=== PATIENT | female | born 1955 | race Caucasian/White ===

== ENCOUNTER 2019-01-29 15:01 | Outpatient (REF) | payer MEDICARE, OTHER, SELFPAY ==
--- NOTE | 2019-01-29 13:45 | PAPFT_PTH ---
PATIENT: Petty Traore LOC: [facility] U#:[id number] AGE/SX: 63/F ROOM: RE01/29/[address]: Emmie Colmenares : 1955 BED: DIS: 01/29/2019 SPEC #: [id number] RECD: 01/30/19 13:09 STATUS: NOLAN RELety #: [id number] COURTNEY: 01/29/19 13:[address]: Emmie Colmenares DEPT: [facility] Cytology RECD BY: Hemalatha Servin ENTERED: 01/30/19 13:10 SP TYPE: PAPFT OTHR DR: Edu Tee Tissues: 1 - CX/ENDOCX FOR PAP SMEARS Procedures: PAP THIN PREP/UVM Screening HPV DNA PROBE Comments: [id number]
== END 2019-01-29 15:21 ==
LOC: NCHCN 15:01
PROVIDERS: PCP Internal Medicine; Visit Provider Nurse Practitioner Family
DX: Z12.4 Encounter for screening for malignant neoplasm of cervix (principal); Z11.51 Encounter for screening for human papillomavirus (HPV)
CPT/HCPCS: 88142; 87624

== ENCOUNTER 2019-01-30 00:59 | Outpatient (CLI) | payer MEDICARE, OTHER, SELFPAY ==
--- NOTE | 2019-01-30 14:18 | DI.RAD_ITS ---
SYMPTOMS/DIAGNOSIS: SCREENING FOR OSTEOPOROSIS IN A POSTMENOPAUSAL WOMAN, Z78.0 DEXA SCAN: Routine examination. No priors for comparison. The lateral view of the spine shows no compression deformities. Evaluation of the left hip shows a total T score of -1.7 and a Z score of 0.5; this is consistent with osteopenia and an increased fracture risk. T Evaluation of the lumbar spine shows a total T score of -1.9 and a Z score of - 0.2; this is also consistent with osteopenia and an increased fracture risk. IMPRESSION: Osteopenia in the lumbar spine and left hip.
== END 2019-01-30 01:19 ==
PROVIDERS: PCP Internal Medicine; Visit Provider Nurse Practitioner Family
DX: M85.88 Other specified disorders of bone density and structure, other site (principal); Z78.0 Asymptomatic menopausal state
CPT/HCPCS: 77080

== ENCOUNTER 2020-03-20 03:21 | Outpatient (CLI) | payer MEDICARE, OTHER, SELFPAY ==
--- NOTE | 2020-03-20 10:30 | DI.MAMMO_ITS ---
EXAM: MAMMO SCREENING CLINICAL HISTORY: SCREENING Z12.31 TECHNIQUE: Mammograms were interpreted according to the usual protocol including computer analysis w [email or web address] CAD system, tomosynthesis and C-view imaging. COMPARISON: 2010 through 2018. FINDINGS: The breasts are composed of mainly fatty density , Breast Density category A. No suspicious masses or suspicious microcalcifications are seen. No skin thickening or abnormal axillary lymph nodes are seen. There has been no significant change from prior exams. IMPRESSION: BI-RADS Category 1, negative. Yearly screening mammography is recommended. Breast Density - Category A - Almost entirely fatty
== END 2020-03-20 03:41 ==
PROVIDERS: PCP Internal Medicine; Visit Provider Nurse Practitioner Family
DX: Z12.31 Encounter for screening mammogram for malignant neoplasm of breast (principal)
CPT/HCPCS: 77063; 77067

== ENCOUNTER 2021-05-07 09:50 | Outpatient (REF) | payer MEDICARE, OTHER, SELFPAY ==
[2021-05-07 14:21] LABS: ALT 26 U/L (14-59); AST 19 U/L (15-37); Anion Gap 7.7 mmol/L (3-11); BUN 14 mg/dL (7-18); CO2 29.3 mmol/L (21.0-32.0); CREATININE 0.6 mg/dL (0.55-1.02); Calcium 8.8 mg/dL (8.5-10.1); Calculated LDL 141 mg/dL (<100); Chloride 107 mmol/L (98-107); Cholesterol 217 mg/dL (<200); Glucose 84 mg/dL (74-106); HDL Cholesterol 68 mg/dL (40-60); Sodium 144 mmol/L (136-145); TSH (W/Ref FT4) 2.51 uIU/mL (0.36-3.74); Triglyceride 41 mg/dL (<150)
== END 2021-05-07 09:51 | disposition home or self-care (01) ==
LOC: NCHCN 09:50
PROVIDERS: PCP Internal Medicine; Visit Provider Nurse Practitioner Family
DX: E78.5 Hyperlipidemia, unspecified (principal); E03.9 Hypothyroidism, unspecified; I10 Essential (primary) hypertension
CPT/HCPCS: 80048; 80061; 84443; 84450; 84460

== ENCOUNTER 2022-01-05 15:12 | Outpatient (REF) | payer MEDICARE, OTHER, SELFPAY ==
[2022-01-05 21:26] LABS: HCT 37.1 % (36.0-46.0); HGB 11.5 g/dL (11.2-15.7); MCH 26.2 pg (27.0-33.0); MCV 84.5 fL (80-95); MPV 11.6 fL (8.0-11.0); Platelet Count 258 10^3/uL (130-400); RBC 4.39 10^6/uL (3.93-5.22); RDW 14.3 % (11.7-14.6); RDW-SD 44.2 fL; WBC 5.36 10^3/uL (4.4-10.8)
[2022-01-05 22:00] LABS: Anion Gap 10.8 mmol/L (3-11); BUN 16 mg/dL (7-18); CO2 29.2 mmol/L (21.0-32.0); CREATININE 0.6 mg/dL (0.55-1.02); Calculated LDL 73 mg/dL (<100); Chloride 103 mmol/L (98-107); Cholesterol 145 mg/dL (<200); Glucose 90 mg/dL (74-106); HDL Cholesterol 62 mg/dL (40-60); Potassium 4.5 mmol/L (3.5-5.1); Sodium 143 mmol/L (136-145); TSH (W/Ref FT4) 2.94 uIU/mL (0.36-3.74); Triglyceride 53 mg/dL (<150)
== END 2022-01-05 15:13 | disposition home or self-care (01) ==
LOC: NCHCN 15:12
PROVIDERS: PCP Internal Medicine; Visit Provider Nurse Practitioner Family
DX: I10 Essential (primary) hypertension (principal); R00.2 Palpitations; E78.5 Hyperlipidemia, unspecified; E03.9 Hypothyroidism, unspecified
CPT/HCPCS: 80048; 80061; 85027; 84443

== ENCOUNTER → 2022-01-11 00:56 | Outpatient (CLI) | payer MEDICARE, OTHER, SELFPAY ==
--- NOTE | 2022-01-11 08:00 | ETT_ITS ---
APPROVED REPORT Exam: Exercise Treadmill Patient Location: Out-Patient Room/Bed: Stress Nurse: Neelam Hernandez RN Ordering Provider:WENDY SUGGS, Contact Number: [phone] BMI: 28.70 Baseline Rhythm: Sinus Bradycardia Indications: Chest pain, sinus bradycardia, intermittent palpitations, jaw pain Medical History Medical History: Hypertension, hyperlipidemia, chest pain, jaw pain, intermittent palpitations Cardiac Medications: Aspirin, atovastatin Allergies: Codeine Cardiac Risk Factors: Hypertension, hyperlipidemia, family hx Previous Cardiac Procedures: None Pretest Chest Pain Characteristics: None Exercise History: Indeterminate Physical Disabilities: None Lung Sounds: Clear to auscultation Heart Sounds: Regular Stress Test Details Test: Exercise stress testing was performed using a Elfego protocol. Rest Stress HR Resting HR Supine: 55 bpm Max Heart Rate (APMHR): 152 bpm Resting HR Standin bpm Target HR (85% APMHR): 129 bpm Max HR Achieved: 148 bpm % of APMHR: 97 Recovery HR: 57 bpm HR response to stress: Normal HR response to stress BP Resting BP Supine: 170/78 mmHg Resting BP Standin/80 mmHg Max BP: 188/78 mmHg Recovery BP: 144/70 mmHg BP response to stress: Normal blood pressure response to stress. ECG Resting ECG: Sinus Bradycardia Ectopy: None Stress ECG: Sinus Tachycardia ST Change: No significant ST segment changes noted Arrhythmia: Occasional PVCs, burst of trigeminy Comment: Ectopy present for 30 seconds in stage 1 of exercise Recovery ECG: Sinus Bradycardia Recovery ST Change: No significant ST segment changes noted Recovery Arrhythmia: None Clinical Reason for Termination: Fatigue Stress Symptoms: General Fatigue, Dyspnea Exercise duration: 6 min17 sec Highest Stage Reached: Stage 3: 3.4 mph at 14% grade. Exercise capacity: 7.48 METs Spencer Treadmill Score: 4.8 Rate Pressure Product: 15037 Stress ECG Conclusion 1. Resting electrocardiogram was normal 2. Patient exercised on Elfego protocol and completed a workload of 7.48 METS, stopping due to fatigue 3. Normal heart rate and blood pressure response to exercise. The patient achieved 97% of predicted heart rate for age 4. There was no electrocardiographic evidence of myocardial ischemia 5. PVCs were seen Spencer Treadmill Score is 4.8 which is Moderate risk. Stress Test Summary STAGE Time (mins) Speed (mph) Grade (%) HR BP SYMPTOMS METS Supine 55 170/78 Standing 53 150/80 SpO2 99% 1 3 1.7 10 126 164/82 SpO2 99% 4.6 2 6 2.5 12 143 178/78 SpO2 98% 7 3 9 3.4 14 146 Mild SOB, SpO2 98% 10.2 1 min recovery 109 188/78 SOB resolved, SpO2 98% 3 min recovery 64 172/72 SpO2 98% 6 min recovery 57 144/70 SpO2 98%
== END ==
PROVIDERS: PCP Internal Medicine; Visit Provider Nurse Practitioner Family
DX: R07.9 Chest pain, unspecified (principal); R00.1 Bradycardia, unspecified; R00.2 Palpitations; R68.84 Jaw pain
CPT/HCPCS: 93016; 93018; 93017

== ENCOUNTER → 2022-05-06 02:13 | Outpatient (CLI) | payer MEDICARE, OTHER, SELFPAY ==
--- NOTE | 2022-05-06 09:37 | DI.MAMMO_ITS ---
Exam(s) MAMMO SCREENING EXAM: MAMMO SCREENING CLINICAL HISTORY: SCREENING, Z12.31 TECHNIQUE: Mammograms were interpreted according to the usual protocol including computer analysis w [employer] CAD system, tomosynthesis and C-view imaging. COMPARISON: 2012 through 2019 FINDINGS: The breasts are composed of mainly fatty density , Breast Density category A. No suspicious masses or suspicious microcalcifications are seen. No skin thickening or abnormal axillary lymph nodes are seen. There has been no significant change from prior exams. IMPRESSION: BI-RADS Category 1, Negative mammogram Yearly screening mammography is recommended. Breast Density - Category A, fatty density. A negative radiographic report should not delay biopsy if a dominant or clinically suspicious mass is present. Up to ten percent of cancers are not identified on mammography. A negative report may reinforce clinical impression. Adenosis and dense breasts may obscure an underlying neoplasm. False positive reports average 6 to 10%. Patient will receive a letter notifying them of these results.
== END ==
PROVIDERS: PCP Internal Medicine; Visit Provider Nurse Practitioner Family
DX: Z12.31 Encounter for screening mammogram for malignant neoplasm of breast (principal)
CPT/HCPCS: 77063; 77067

== ENCOUNTER 2022-11-16 16:03 | Outpatient (REF) | payer MEDICARE, SELFPAY ==
[2022-11-16 14:32] LABS: HCT 36.3 % (36.0-46.0); HGB 11.9 g/dL (11.2-15.7); MCH 29.6 pg (27.0-33.0); MCHC 32.8 % (32.0-36.0); MCV 90 fL (80-95); MPV 10.6 fL (8.0-11.0); Platelet Count 275 10^3/uL (130-400); RBC 4.02 10^6/uL (3.93-5.22); RDW 12.3 % (11.7-14.6); RDW-SD 40.6 fL; WBC 4.46 10^3/uL (4.4-10.8)
[2022-11-16 14:55] LABS: ALT 20 U/L (14-59); AST 19 U/L (15-37); Alkaline Phosphatase 107 U/L (46-116); Anion Gap 4.4 mmol/L (3-11); BUN 12 mg/dL (7-18); Bilirubin, Total 0.3 mg/dL (0.2-1.0); CO2 31.6 mmol/L (21.0-32.0); CREATININE 0.6 mg/dL (0.55-1.02); Calcium 9.3 mg/dL (8.5-10.1); Chloride 105 mmol/L (98-107); Estimated GFR 97.71 (mL/min/1.73m2); Glucose 79 mg/dL (74-106); Potassium 4.2 mmol/L (3.5-5.1); Sodium 141 mmol/L (136-145); TSH (W/Ref FT4) 2.85 uIU/mL (0.36-3.74); Total Protein 6.9 g/dL (6.4-8.2)
== END 2022-11-16 16:04 | disposition home or self-care (01) ==
LOC: NCHCN 16:03
PROVIDERS: PCP Internal Medicine; Visit Provider Nurse Practitioner Family
DX: E03.9 Hypothyroidism, unspecified (principal); I10 Essential (primary) hypertension; Z00.00 Encounter for general adult medical examination without abnormal findings; E78.5 Hyperlipidemia, unspecified
CPT/HCPCS: 80053; 85027; 84443

== ENCOUNTER 2023-05-25 12:46 | Outpatient (REF) | payer MEDICARE, SELFPAY ==
--- NOTE | 2023-05-25 11:00 | SKI_PTH ---
PATIENT: Petty Traore LOC: [facility] U#:[id number] AGE/SX: 67/F ROOM: RE05/25/[address]: Suzi Arteaga : 1955 BED: DIS: 05/25/2023 SPEC #: [id number] RECD: 05/25/23 16:57 STATUS: NOLAN RELety #: [id number] COURTNEY: 05/25/23 11:[address]: Suzi Arteaga DEPT: Surgical Specimen RECD BY: Hemalatha Servin ENTERED: 05/25/23 16:57 SP TYPE: JEFF[facility] BURNETT DR: Edu Tee Tissues: 1 - SKIN BIOPSY(SHAVE/PUNCH) Procedures: SKIN LEVEL 4 Comments: [id number]
== END 2023-05-25 12:47 | disposition home or self-care (01) ==
LOC: NCHCN 12:46
PROVIDERS: PCP Internal Medicine; Visit Provider Family Medicine
DX: L90.5 Scar conditions and fibrosis of skin (principal); L98.8 Other specified disorders of the skin and subcutaneous tissue
CPT/HCPCS: 88305

== ENCOUNTER → 2023-06-14 01:09 | Outpatient (CLI) | payer MEDICARE, SELFPAY ==
--- NOTE | 2023-06-14 | DI.DEXA_ITS ---
Exam(s) XR DEXA BONE DENSITY W/WO MATT EXAM: XR DEXA BONE DENSITY W/WO MATT CLINICAL HISTORY: DISORDER BONE DENSITY M85.88 TECHNIQUE: [employer] Horizon C densitometer analysis of left hip, lumbar spine and left forearm. Lat eral survey image of the thoracic and lumbar spine. COMPARISON: DX XR DEXA BONE DENSITY W/WO MATT from 01/30/2019 FINDINGS: Lateral view of the thoracic and lumbar spine shows kyphosis and a mild T11 compression fracture, sli ghtly worse from prior.. Bone mineral density measurements of the lumbar spine correspond to a total T-score of -1.8, in the osteopenic range. This is not significantly changed from the prior exam. Bone mineral density measurements of the left hip correspond to a total T-score of -2.0 . The femora l neck T-score is -2.2, in the osteopenic range. This represents a 5.0 percent decrease from 2019.. Theleft forearm bone mineral density measurements correspond to a T-score of the distal 3rd of -0.6, in the normal range. This is not significantly changed from prior.. IMPRESSION: Mild T11 compression fracture. Osteopenia of the lumbar spine and left hip. Normal bone mineral density of the forearm.
== END ==
PROVIDERS: PCP Internal Medicine; Visit Provider Nurse Practitioner Family
DX: M85.88 Other specified disorders of bone density and structure, other site (principal); Z13.820 Encounter for screening for osteoporosis
CPT/HCPCS: 77080

== ENCOUNTER 2024-02-01 08:49 | Emergency (ER) | payer MEDICARE, SELFPAY ==
[2024-02-01] VITALS (17 sets, daily range): BP systolic 170–208; BP diastolic 73–98; PULSE 48–62; RESP 13–19; TEMP 36.7; O2SAT 100
--- NOTE | 2024-02-01 09:00 | DI.CT_ITS ---
Exam(s) CT HEAD WO EXAM: CT HEAD WO CLINICAL HISTORY: increased confusion. TECHNIQUE: Imaging Protocol: Axial computed tomography images with coronal and sagittal reformatted images were created and reviewed COMPARISON: No exams were available for comparison FINDINGS: There are no skull fractures. There is no fluid in the visualized paranasal sinuses. There is no evidence of intracranial hemorrhage, mass effect, or shift of midline structures. There are no extra-axial fluid collections. The ventricles are not enlarged or shifted and there is no blo od within the ventricular system nor within the basal cisterns. IMPRESSION: No acute intracranial findings on this noninfused CT scan of the brain. RADIATION DOSE DELIVERED: 655.45mGy.cm Total DLP DATA REPOSITORY: All CT scans at this facility are submitted to the National Radiology Data Registry (NRDR) Dose Index Registry (DIR) with the [employer] (A[employer]). RADIATION OPTIMIZATION: All CT scans at this facility use at least one of these dose optimization te chniques: automated exposure control; mA and/or kV adjustment per patient size (includes targeted exa ms where dose is matched to clinical indication); or iterative reconstruction.
--- NOTE | 2024-02-01 09:00 | RT.EKG_ITS ---
APPROVED REPORT Exam: Resting ECG Reason for Exam: confusion Patient Location: E HR:55 bpm ECG Measurements Heart Rate 55 AXIS IL 171 P 32 QRSd 92 QRS 18 QT 446 T 34 QTc 428 Conclusion Sinus bradycardia...rate< 60 Physician: no stemi
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
[2024-02-01 09:22] LABS: Abs Immature Grans 0.01 10^3/uL (0.0-0.06); Absolute Basophil Count 0.03 10^3/uL (0.0-0.2); Absolute Eosinophil Count 0.06 10^3/uL (0.0-0.7); Absolute Lymphocyte Count 1.83 10^3/uL (1.2-3.4); Absolute Monocyte Count 0.47 10^3/uL (0.1-0.8); Absolute Neutrophil Count 1.92 10^3/uL (1.2-6.7); Basophils % 0.7 %; Eosinophils % 1.4 %; HCT 39.6 % (36.0-46.0); Immature Grans % 0.2 %; Lymphocytes % 42.4 %; MCH 29.3 pg (27.0-33.0); MCHC 32.8 % (32.0-36.0); MCV 89 fL (80-95); Monocytes % 10.9 %; Neutrophils % 44.4 %; Platelet Count 253 10^3/uL (130-400); RBC 4.44 10^6/uL (3.93-5.22); RDW 12.5 % (11.7-14.6); RDW-SD 41.3 fL; WBC 4.32 10^3/uL (4.4-10.8)
[2024-02-01 09:40] LABS: ALT 42 U/L (14-59); AST 27 U/L (15-37); Albumin 4.3 g/dL (3.4-5.0); Alkaline Phosphatase 87 U/L (46-116); Anion Gap 9.2 mmol/L (3-11); BUN 15 mg/dL (7-18); Bilirubin, Total 0.6 mg/dL (0.2-1.0); CO2 27.8 mmol/L (21.0-32.0); CREATININE 0.6 mg/dL (0.55-1.02); Calcium 9.7 mg/dL (8.5-10.1); Chloride 105 mmol/L (98-107); ETHANOL BLOOD < 3.0 mg/dL (<10); Glucose 106 mg/dL (74-106); Magnesium 1.9 mg/dL (1.8-2.4); Potassium 3.9 mmol/L (3.5-5.1); Sodium 142 mmol/L (136-145); Total Protein 7.8 g/dL (6.4-8.2)
[2024-02-01 09:40] LABS: Ammonia 11 umol/L (11-32)
[2024-02-01 09:48] LABS: Bilirubin Negative (Negative); Blood Negative (Negative); Clarity Clear (Clear); Glucose Negative (Negative); Ketones Negative (Negative); Leukocyte Esterase Trace (Negative); Nitrite Negative (Negative); Specific Gravity 1.015 (1.005-1.025); Urobilinogen 0.2 mg/dL (Up to 0.2); pH 7.5 (5-8)
--- NOTE | 2024-02-01 10:00 | NUR.NOTE ---
This nurse took over care from previous nurse. Went in and introduced self to pt, updated on plan of care and reapplied property assessment monitor as pt just returned from [place]. Warm blanket provided for pt. No other needs identified at this time Nursing Note:
[2024-02-01 10:08] LABS: Bacteria Rare HPF (Negative); Crystals Negative HPF (Negative); Epithelial Cells Rare HPF (Negative); RBC 0-2 HPF (0-2)
[2024-02-01 10:09] LABS: C & S Indicated? No; Casts Negative LPF (Negative); Mucus Negative (Negative)
--- NOTE | 2024-02-01 10:15 | DI.CT_ITS ---
Exam(s) CT BRAIN NECK CTA EXAM: CT BRAIN NECK CTA CLINICAL HISTORY: confusion. TECHNIQUE: Imaging Protocol: Axial CT angiography was performed with multi-slice acquisition and mu lti-planar and/or 3D reconstructions. CONTRAST MATERIAL: Intravenous: Omnipaque 350 Contrast volume:structured data in ml COMPARISON: No exams were available for comparison FINDINGS: CTA Neck W: Aortic arch anatomy: The aortic arch anatomy is bovine configuration and there is no significant sten osis at the origin of the great vessels off of the aortic arch. No intimal flap evident. Anterior circulation: Both common carotid arteries ascend with normal luminal diameters. At the level the carotid bulbs and proximal internal carotid arteries there is no significant plaque and no stenosis evident on either side. Above this level the bilateral internal carotid arteries exhibit straight line flow without stenosis in the upper neck. Posterior circulation: Both vertebral arteries originate in conventional fashion off of the subclavian arteries and there is no obvious stenosis at the origin of the vertebral arteries. The right vertebral artery is dominant. At the skull base the non dominant left vertebral artery ter minates as the left posterior inferior cerebellar artery. The right vertebral artery contributes to the formation of the thin basilar artery. CTA Brain W: Anterior circulation: Both internal carotid arteries are patent in the skull base-carotid canals as well as within the cave rnous sinuses. The supraclinoid aspects of the ICAs are patent. Both A1 segments are patent. The left A1 segment i s dominant. Both anterior cerebral arteries are patent and there is no evidence of aneurysm at the l evel of the anterior communicating artery. Both middle cerebral arteries are patent with no evidence of significant stenosis nor intraluminal th rombus. There also no aneurysms of these vessels. Posterior circulation: The thin basilar artery ascends in the midline. Distally it gives off and terminates as superior cer ebellar arteries. The bilateral posterior cerebral arteries are supplied by posterior communicating arteries on both si patrick the rroree-ds-Bgmtqn. There is no evidence of aneurysm at the tip of the basilar artery nor elsewhere in the tcgdtp-za-Uyyf is. CT BRAIN: There is no evidence of intracranial hemorrhage, mass effect, or shift of midline structures. There are no extra-axial fluid collections. Ventricles are not enlarged or shifted. There are no ring enh ancing lesions in the brain and no abnormal meningeal enhancement. IMPRESSION: 1. Patent carotid arteries in the neck. No hemodynamically significant stenosis. 2. Patent vertebral arteries. Right vertebral artery is dominant. 3. Patent intracranial arteries. Basilar artery is thin on a developmental basis. It terminates as appears cerebellar arteries. The posterior cerebral arteries are perfused by posterior communicating arteries on both sides the yaalvp-tm-Qisrvi. 4. No aneurysms evident. 5. No acute intracranial findings. No ring enhancing lesions in the brain. No abnormal meningeal en hancement. Discussed with ER provider. RADIATION DOSE DELIVERED: 1,002.07mGy.cm Total DLP DATA REPOSITORY: All CT scans at this facility are submitted to the National Radiology Data Registry (NRDR) Dose Index Registry (DIR) with the [employer] (ACR). RADIATION OPTIMIZATION: All CT scans at this facility use at least one of these dose optimization te chniques: automated exposure control; mA and/or kV adjustment per patient size (includes targeted exa ms where dose is matched to clinical indication); or iterative reconstruction.
[2024-02-01 10:23] LABS: FREE T4 0.83 ng/dL (0.76-1.46)
[2024-02-01] MEDS: Normal Saline 500 ML IV (10:34)
[2024-02-01 10:49] LABS: Vitamin B12 1233 pg/mL (193-986)
[2024-02-01] MEDS: Omnipaque 350 MG/ML 100 ML BTL IJ (10:51)
[2024-02-01] MEDS: Normal Saline - Diluent 50 ML VIAL IJ (10:53)
== END 2024-02-01 12:36 | disposition home or self-care (01) ==
PROVIDERS: Emergency Provider Physician Assistant; PCP Internal Medicine
DX: R41.0 Disorientation, unspecified (principal); F41.9 Anxiety disorder, unspecified; R00.2 Palpitations; R03.0 Elevated blood-pressure reading, without diagnosis of hypertension; Z79.82 Long term (current) use of aspirin
CPT/HCPCS: 70496; 70498; 80053; 93005; 99285; 70450; 80320; 81003; 81015; 82140; 82607; 83735; 84439; 84443; 85025; 93010; 99284; J3490

== ENCOUNTER → 2024-05-02 13:33 | Outpatient (BNVA) | payer MEDICARE, SELFPAY | PROVIDERS: PCP Nurse Practitioner Family; Referring Provider Nurse Practitioner Family; Visit Provider Nurse Practitioner Adult Health | DX: R41.89 Other symptoms and signs involving cognitive functions and awareness (principal) | CPT/HCPCS: 99215; G2212 ==

== ENCOUNTER 2024-05-17 13:06 | Outpatient (REF) | payer MEDICARE, SELFPAY ==
--- OUTSIDE RECORDS SUMMARY | 2024-05-17 13:09 | XMS_ITS | Encounter Summary ---
Author Organization [facility] Address [address] [place] [address] Care Team Providers Care Protohistorian Name Role Phone Unavailable Primary Care Provider Unavailabl e Encounter Details Date Type Department Care Team (Late st Contact Info) Description 01/16/2014 Results Only [facility] ([facility] [address], [place] [address] Ashley Drake FNP [address] [place], [place] [id number] Social History Tobacco Use Types Packs/Day Years Used Date Smoking Tobacco: Never Assessed Sex and Gender Information Value Date Recorded Sex Assigned at Not on file Gender Identity Not on file Sexual Orientation Not on file documented as of this encounter Plan of Treatment Not on file documented as of this encounter Procedures Procedure Name Priority Date/Time Associated Diagnosis Comments PAP TEST- RESULT ONLY Routine 01/16/2014 0:00 EDT documented in this encounter Results * PAP TEST- RESULT ONLY (01/16/2014 0:00 EDT) Pathology Report: CYTOPATHOLOGY REPORT Reports generated via electronic interface contain original data; however they are lacking the format of the original report. Caution should be taken when reading/interpreti ng unformatted reports. Name: ? VICKI TRAORE ? Accession #: ? [id number] ? : ? 1955 (Age: 58) ??F ?Collect Date: ? 01/16/2014 ? Location: ? [facility] ? Receive Date: ? 01/17/2014 ? Provider: ASHLEY DRAKE DISPATCH CLERK Copy to: ? Final Report SPECIMEN ADEQUACY ? Satisfactory for Evaluation - assessment of transformation zone component not applicable ( e.g. atrophy, vaginal sample, hysterectomy) - scant squamous epithelial component GENERAL CATEGORIZATION ? Negative for Intraepithelial Lesion or Malignancy ?? Last Menstrual Period: Many years ago Specimen/Source: ??Pap Test, Cervix/Endocervix, ThinPrep Imaging System with manual evaluation Document reviewed and electronically signed by: ? COOKIE Franco(ASCP) ? Report ??Date: 01/23/2014 15:44 HPV with Pap Test ? Date Ordered: ? 01/23/2014 ? Status: ?? Signed Out ?Date Complete: ? 01/25/2014 ? By: ??System Interface ? Date Reported: ? 01/25/2014 ? Interpretation RESULT: Negative for HPV. No E6 or E7 mRNA is detected from HPV types 16,18,31,33,35, 39,45,51,52,56,58, 59,66, and 68 by stand in mediated amplification. Comments Document reviewed and electronically signed by: ? System Interface ? Report date: 01/25/2014 By the signature above, the attending physician certifies that he/she has personally conducted a gross and/or microscopic examination of the described specimens and rendered or confirmed the above diagnosis. End of Report [facility] 01/16/2014 01/17/2014 Ashley Drake DISPATCH CLERK PATHOLOGY ORDERABLES Performing Organization Address City/State/[facility] Co de Phone Number [facility] [address] [place] [address] documented in this encounter Visit Diagnoses Not on filedocumented in this encounter
--- OUTSIDE RECORDS SUMMARY | 2024-05-17 13:09 | XMS_ITS | Referral Summary ---
Author Organization [facility] Address [address] [place] [address] Care Team Providers Care Housing Quality Standard Inspector Name Role Phone Edu Tee MD Primary Care Provider [phone] Social History Tobacco Use Types Packs/Day Years Used Date Smoking Tobacco: Never Assessed Sex and Gender Information Value Date Recorded Sex Assigned at Not on file Gender Identity Not on file Sexual Orientation Not on file Plan of Treatment Not on file Care Teams Housing Quality Standard Inspector Relationship Specialty Start Date End Date Edu Tee MD [address] [place] [address] PCP - General 08/08/15
--- OUTSIDE RECORDS SUMMARY | 2024-05-17 13:09 | XMS_ITS | Encounter Summary ---
Author Organization [facility] Address [address] [place] [address] Care Team Providers Care Shape Carver Name Role Phone Unavailable Primary Care Provider Unavailabl e Encounter Details Date Type Department Care Team (Late st Contact Info) Description 01/05/2011 Results Only [facility] Laboratory Services - [facility] ([facility]) [address], [place] [address] Ashley Drake FNP [address] [place], [place] [phone] Social History Tobacco Use Types Packs/Day Years Used Date Smoking Tobacco: Never Assessed Sex and Gender Information Value Date Recorded Sex Assigned at Not on file Gender Identity Not on file Sexual Orientation Not on file documented as of this encounter Plan of Treatment Not on file documented as of this encounter Procedures Procedure Name Priority Date/Time Associated Diagnosis Comments CYTOPATHOLOGY Routine 01/05/2011 0:00 EDT documented in this encounter Results * CYTOPATHOLOGY (01/05/2011 0:00 EDT) Pathology Report: CYTOPATHOLOGY REPORT ? Reports generated via electronic interface contain original data; ? however they are lacking the format of the original report. ? Caution should be taken when reading/interpreti ng unformatted reports. ? Name: ? VICKI TRAORE ? Accession #: ? [id number] ? : ? 1955 (Age: 55) ??F ?Collect Date: ? 01/05/2011 ? Location: ? [facility] ? Receive Date: ? 01/07/2011 ? Provider: ?ASHLEY FERGUSON ? Copy to: ? Specimen/Source: ?Pap Test, Endocervix, ThinPrep Imaging System with ? manual evaluation ? Last Menstrual Period: ? SPECIMEN ADEQUACY ? Satisfactory for Evaluation ? - assessment of transformation zone component not applicable ( e.g. atrophy, ? vaginal sample, hysterectomy) ? GENERAL CATEGORIZATION ? Negative for Intraepithelial Lesion or Malignancy ? Document reviewed and electronically signed by: ? Lynan Al, CT(ASCP) ? Report Date: ??01/13/2011 09:46 ? End of Report ? [facility] 01/05/2011 01/07/2011 Ashley Drake URBAN DESIGNER PATHOLOGY ORDERABLES Performing Organization Address City/State/[facility] Co de Phone Number [facility] [address] [place] [address] documented in this encounter Visit Diagnoses Not on filedocumented in this encounter
--- OUTSIDE RECORDS SUMMARY | 2024-05-17 13:09 | XMS_ITS | Encounter Summary ---
Author Organization [facility] Address [address] [place] [address] Care Team Providers Care Insole Tacker Name Role Phone Unavailable Primary Care Provider Unavailabl e Encounter Details Date Type Department Care Team (Late st Contact Info) Description 10/26/2004 Results Only [facility] - [facility] [address] [place] [address] Rubio Richards, STAFF TRAINING AND DEVELOPMENT MANAGER [address] [place] [phone] Social History Tobacco Use Types Packs/Day Years Used Date Smoking Tobacco: Never Assessed Sex and Gender Information Value Date Recorded Sex Assigned at Not on file Gender Identity Not on file Sexual Orientation Not on file documented as of this encounter Plan of Treatment Not on file documented as of this encounter Procedures Procedure Name Priority Date/Time Associated Diagnosis Comments CYTOPATHOLOGY Routine 10/26/2004 0:00 EST documented in this encounter Results * CYTOPATHOLOGY (10/26/2004 0:00 EST) Pathology Report: CYTOPATHOLOGY REPORT Reports generated via electronic interface contain original data; however they are lacking the format of the original report. Caution should be taken when reading/interpreti ng unformatted reports. Name: ? VICKI TRAORE ? Accession #: ? [id number] : ? 1955 (Age: 48) ??F ?Collect Date: ? 10/26/2004 Location: ? [facility] ? Receive Date: ? 10/28/2004 Provider: ?RUBIO RICHARDS STAFF TRAINING AND DEVELOPMENT MANAGER Copy to: ? Specimen/Source: ?ThinPrep Pap Test, Cervix/Endocervix Last Menstrual Period: ? 10/26/04 Previous Gynecologic Pathology: ? ASC-US: 10/06 Other: ? HPVA - HPV testing requested if ASC-US on the current ThinPrep Pap test. ? SPECIMEN ADEQUACY ? Satisfactory for Evaluation - transformation zone component present - scant squamous epithelial component secondary to excessive blood GENERAL CATEGORIZATION ? Negative for Intraepithelial Lesion or Malignancy ? Document reviewed and electronically signed by: ? COOKIE Lau(ASCP) ? Report Date: ??10/30/2004 14:08 End of Report [facility] 10/26/2004 10/28/2004 Rubio Richards NP PATHOLOGY ORDERABLES [facility] [address] [place] [address] documented in this encounter Visit Diagnoses Not on filedocumented in this encounter
--- OUTSIDE RECORDS SUMMARY | 2024-05-17 13:09 | XMS_ITS | Encounter Summary ---
Author Organization [facility] Address [address] [place] [address] Care Team Providers Care Conservation Educator Name Role Phone Edu Tee MD Primary Care Provider [phone] Encounter Details Date Type Department Care Team (Late st Contact Info) Description 05/26/2023 Lab Requisition [facility] Pathology & Laboratory Medicine - [facility] [address] [place] [address] Suzi Arteaga MD [address] [place] [phone] Encounter for other general examination Social History Tobacco Use Types Packs/Day Years Used Date Smoking Tobacco: Never Assessed Sex and Gender Information Value Date Recorded Sex Assigned at Not on file Gender Identity Not on file Sexual Orientation Not on file documented as of this encounter Plan of Treatment Not on file documented as of this encounter Procedures Procedure Name Priority Date/Time Associated Diagnosis Comments SURGICAL PATHOLOGY Today 05/25/2023 11 :00 EDT Encounter for other general examination documented in this encounter Results * SURGICAL PATHOLOGY (05/25/2023 11:00 EDT) Note to Patient The following pathology results have been interpreted by your pathologist and may be available to you before your health provider has had the opportunity to review them. Please allow time for your provider to receive these results and explore management options, if applicable. 05/30/2023 9:57 EDT [facility] Final Diagnosis A. SKIN OF SCAPULA, LEFT, SHAVE BIOPSY: - Dermal scar with mixed inflammation. See comment. 05/30/2023 9:57 [facility] Diagnosis Comment Multiple levels of the biopsy have been reviewed. There is no evidence of malignancy. Within the dermis is superficial scar formation with moderate mixed inflammation which includes lymphomononuclear cells and histiocytes. Histiocytes predominate including multinucleated cells. There is no definitive evidence of a cyst. The findings are not characteristic of a primary granulomatous process. Clinical correlation is recommended. 05/30/2023 9:57 [facility] Attestation By the signature below, the attending physician certifies that they have 1) personally conducted a gross and/or microscopic examination of the described specimen(s), and/or personally interpreted the results of laboratory testing of the described specimen(s), and 2) personally rendered or confirmed the above diagnosis. 05/30/2023 9:57 [facility] at 0957 Clinical History 4 mm bleeding lesion 05/30/2023 9:57 [facility] Gross Description A. Received in formalin labelled with proper patient identification (initials L, M) and L shoulder? are 2 irregular shaves of buckner-alas to white skin (0.3 x 0.2 x 0.1 cm and 0.7 x 0.4 x 0.1 cm). The margins are inked. The larger tissue is bisected and the specimen is entirely submitted in A1. BEST TIRADO(ASCP) 05/26/2023 9:06 05/30/2023 9:57 T [facility] Performing Lab [facility] 05/30/2023 9:57 [facility] Scanned Images 05/30/2023 9:57 [facility] Tissue SPECIMEN FROM SKIN / Unknown 05/25/2023 11:00 EDT 05/26/2023 7:52 EDT Suzi Arteaga MD PATHOLOGY ORDERABLES [facility] [address] [place] [address] documented in this encounter Visit Diagnoses Diagnosis Encounter for other general examination documented in this encounter Care Teams Conservation Educator Relationship Specialty Start Date End Date Edu Tee MD [address] [place] [address] PCP - General 08/08/15 documented as of this encounter
--- OUTSIDE RECORDS SUMMARY | 2024-05-17 13:09 | XMS_ITS | Encounter Summary ---
Author Organization [facility] Address [address] [place] [address] Care Team Providers Care Lightning Rod Erector Name Role Phone Unavailable Primary Care Provider Unavailabl e Encounter Details Date Type Department Care Team (Late st Contact Info) Description 11/23/2005 Results Only [facility] Medicine [address] [address] Michell Solano MD [address] [place] [address] Social History Tobacco Use Types Packs/Day Years Used Date Smoking Tobacco: Never Assessed Sex and Gender Information Value Date Recorded Sex Assigned at Not on file Gender Identity Not on file Sexual Orientation Not on file documented as of this encounter Plan of Treatment Not on file documented as of this encounter Procedures Procedure Name Priority Date/Time Associated Diagnosis Comments CYTOPATHOLOGY Routine 11/23/2005 0:00 EST documented in this encounter Results * CYTOPATHOLOGY (11/23/2005 0:00 EST) Pathology Report: CYTOPATHOLOGY REPORT Reports generated via electronic interface contain original data; however they are lacking the format of the original report. Caution should be taken when reading/interpreti ng unformatted reports. Name: ? VICKI TRAORE ? Accession #: ? [id number] : ? 1955 (Age: 50) ??F ?Collect Date: ? 11/23/2005 Location: ? [facility] ? Receive Date: ? 11/25/2005 Provider: ?MICHELL SOLANO MD Copy to: ? Specimen/Source: ?ThinPrep Pap Test, Endocervix, processed on [employer] ThinPrep Imaging System, with manual evaluation Last Menstrual Period: ? 09/22/05 Previous Gynecologic Pathology: ? ASC-US Other: ? HPVA - HPV testing requested if ASC-US on the current ThinPrep Pap test. ? SPECIMEN ADEQUACY ? Satisfactory for Evaluation - assessment of transformation zone component not applicable ( e.g. atrophy, vaginal sample, hysterectomy) GENERAL CATEGORIZATION ? Negative for Intraepithelial Lesion or Malignancy ? Document reviewed and electronically signed by: ? COOKIE Lawton(ASCP) ? Report Date: ??12/01/2005 09:46 End of Report [facility] 11/23/2005 11/25/2005 Michell Solano MD PATHOLOGY ORDERABLES Performing Organization Address City/State/[facility] Co de Phone Number [facility] [address] [place] [address] documented in this encounter Visit Diagnoses Not on filedocumented in this encounter
--- OUTSIDE RECORDS SUMMARY | 2024-05-17 13:09 | XMS_ITS | Encounter Summary ---
Author Organization [facility] Address [address] [place] [address] Care Team Providers Care Dental Laboratory Supervisor Name Role Phone Unavailable Primary Care Provider Unavailabl e Encounter Details Date Type Department Care Team (Late st Contact Info) Description 10/28/[address] [facility] - [place] conversion [address] [place] [address] Rubio Richards NP [address] [place] [phone] Social History Tobacco Use Types Packs/Day Years Used Date Smoking Tobacco: Never Assessed Sex and Gender Information Value Date Recorded Sex Assigned at Not on file Gender Identity Not on file Sexual Orientation Not on file documented as of this encounter Plan of Treatment Not on file documented as of this encounter Procedures Procedure Name Priority Date/Time Associated Diagnosis Comments HPV DETECTION, HIGH RISK TYPES Routine 10/28/2003 16:30 EST CYTOPATHOLOGY Routine 10/28/2003 0:00 EST documented in this encounter Results * HUMAN PAPILLOMA VIRUS DNA TEST (10/28/2003 16:30 EST) Specimen Description Cervix, ThinPrep vial [facility] Result Sample quantity insufficient for testing. [facility] Report Status Final [id number] [facility] 10/28/2003 16:3 0 EST 11/14/2003 13:32 EST Rubio Richards NP MICROBIOLOGY - GENER AL ORDERABLES [facility] [address] [place] [address] * CYTOPATHOLOGY (10/28/2003 0:00 EST) Pathology Report: CYTOPATHOLOGY REPORT Reports generated via electronic interface contain original data; however they are lacking the format of the original report. Caution should be taken when reading/interpreti ng unformatted reports. Name: ? VICKI TRAORE ? Accession #: ? [id number] : ? 1955 (Age: 47) ??F ?Collect Date: ? 10/28/2003 Location: ? [facility] ? Receive Date: ? 10/30/2003 Provider: ?RUBIO RICHARDS VENEER CLIPPER HELPER Copy to: ? Specimen/Source: ?ThinPrep Pap Test, Cervix/Endocervix Last Menstrual Period: ? 10/17/03 Hormonal/Contracep tive Status: ? Tubal ligation Other: ? HPVA - HPV testing requested if ASC-US on the current ThinPrep Pap test. ? SPECIMEN ADEQUACY ? Satisfactory for Evaluation - transformation zone component present GENERAL CATEGORIZATION ? Epithelial Cell Abnormality INTERPRETATION ? Squamous Cell Abnormality - Atypical squamous cells, undetermined significance. Endometrial cells present in a women equal to or greater than age 40. EDUCATIONAL NOTES/RECOMMENDATI ONS ? [facility] recommends following the 2001 Consensus Guidelines for the Management of Women with Cervical Cytological Abnormalities (MACI,2002;287:212 0-9). Management algorithms have been distributed by [facility] and are available online at www.ASCCP.org. ? COMMENT ? Benign appearing endometrial cells on Pap tests are usually a normal finding in women with regular menstrual cycles, especially if the Pap was collected during the first half of the menstrual cycle. ??There is data showing that endometrial cells on Pap tests may be associated with endometrial/uterin e abnormalities in post menopausal women or in premenopausal women with abnormal bleeding. ??There is limited data on the significance of benign endometrial cells in post menopausal women on HRT. ??Clinical correlation is recommended. Note: ?? The Pap test is not an accurate test for the screening of endometrial lesions and should not be used as a follow up in patients with clinical suspicion of endometrial pathology. ? Document reviewed and electronically signed by: ? KATHIA DUFF MD [facility] ? Report Date: ??11/13/2003 16:29 End of Report [facility] 10/28/2003 10/30/2003 Rubio Richards NP PATHOLOGY ORDERABLES [facility] [address] [place] [address] documented in this encounter Visit Diagnoses Not on filedocumented in this encounter
--- OUTSIDE RECORDS SUMMARY | 2024-05-17 13:09 | XMS_ITS | Encounter Summary ---
Author Organization [facility] Address [address] [place] [address] Care Team Providers Care English Instructor Name Role Phone Unavailable Primary Care Provider Unavailabl e Encounter Details Date Type Department Care Team (Late st Contact Info) Description 11/20/[address] [facility] - [place] conversion [address] [place] [address] Ashley Drake FNP [address] [place], [place] [phone] Social History Tobacco Use Types Packs/Day Years Used Date Smoking Tobacco: Never Assessed Sex and Gender Information Value Date Recorded Sex Assigned at Not on file Gender Identity Not on file Sexual Orientation Not on file documented as of this encounter Plan of Treatment Not on file documented as of this encounter Procedures Procedure Name Priority Date/Time Associated Diagnosis Comments CYTOPATHOLOGY Routine 11/20/2001 0:00 EST documented in this encounter Results * CYTOPATHOLOGY (11/20/2001 0:00 EST) Pathology Report: CYTOPATHOLOGY REPORT Reports generated via electronic interface contain original data; however they are lacking the format of the original report. Caution should be taken when reading/interpreti ng unformatted reports. Name: ? VICKI TRAORE ? Accession #: ? [id number] : ? 1955 (Age: 46) ??F ?Collect Date: ? 11/20/2001 Location: ? [facility] ? Receive Date: ? 11/24/2001 Provider: ?ASHLEY POLLACKP Copy to: ? Specimen/Source: ?Conventional Pap Test, Cervix/Endocervix Last Menstrual Period: ? 10/24/01 ? SPECIMEN ADEQUACY ? Satisfactory for Evaluation - transformation zone component present GENERAL CATEGORIZATION ? Negative for Intraepithelial Lesion or Malignancy ? Document reviewed and electronically signed by: ? Megan Cruz, COOKIE(ASCP) ? Report Date: ??11/28/2001 14:05 End of Report [facility] 11/20/2001 11/24/2001 Ashley POLLACKP PATHOLOGY ORDERABLES [facility] [address] [place] [address] documented in this encounter Visit Diagnoses Not on filedocumented in this encounter
--- OUTSIDE RECORDS SUMMARY | 2024-05-17 13:09 | XMS_ITS | Encounter Summary ---
Author Organization [facility] Address [address] [place] [address] Care Team Providers Care Park Maintenance Technician Name Role Phone Unavailable Primary Care Provider Unavailabl e Encounter Details Date Type Department Care Team (Late st Contact Info) Description 12/24/2008 Before PRISM Converted Visit (Maple) [facility] - Maple conversion [address] [place] [address] Ashley Drake FNP [address] [place], [place] [id number] Social History Tobacco Use Types Packs/Day Years Used Date Smoking Tobacco: Never Assessed Sex and Gender Information Value Date Recorded Sex Assigned at Not on file Gender Identity Not on file Sexual Orientation Not on file documented as of this encounter Plan of Treatment Not on file documented as of this encounter Procedures Procedure Name Priority Date/Time Associated Diagnosis Comments CYTOPATHOLOGY Routine 12/24/2008 0:00 EDT documented in this encounter Results * CYTOPATHOLOGY (12/24/2008 0:00 EDT) Pathology Report: CYTOPATHOLOGY REPORT ? Reports generated via electronic interface contain original data; ? however they are lacking the format of the original report. ? Caution should be taken when reading/interpreti ng unformatted reports. ? Name: ? VICKI TRAORE ? Accession #: ? [id number] ? : ? 1955 (Age: 53) ??F ?Collect Date: ? 12/24/2008 ? Location: ? [facility] ? Receive Date: ? 12/26/2008 ? Provider: ?ASHLEY FERGUSON ? Copy to: ? Specimen/Source: ?Pap Test, Endocervix, ThinPrep Imaging System with ? manual evaluation ? Last Menstrual Period: ? Other: ? HPVA - HPV testing requested if ASC-US on the current ThinPrep Pap test. ? SPECIMEN ADEQUACY ? Satisfactory for Evaluation ? - assessment of transformation zone component not applicable ( e.g. atrophy, ? vaginal sample, hysterectomy) ? GENERAL CATEGORIZATION ? Negative for Intraepithelial Lesion or Malignancy ? Document reviewed and electronically signed by: ? Lynan Al, CT(ASCP) ? Report Date: ??12/27/2008 10:26 ? End of Report ? ANAM ROSAS 12/24/2008 12/26/2008 Ashely Drake TRACTOR MECHANIC APPRENTICE PATHOLOGY ORDERABLES ANAM ROSAS [address] [place] [address] documented in this encounter Visit Diagnoses Not on filedocumented in this encounter
--- OUTSIDE RECORDS SUMMARY | 2024-05-17 13:09 | XMS_ITS | Clinical Summary ---
Author Organization [facility] Address [address] [place] [address] Care Team Providers Care Employment Law Attorney Name Role Phone Edu Tee MD Primary Care Provider [phone] Social History Tobacco Use Types Packs/Day Years Used Date Smoking Tobacco: Never Assessed Sex and Gender Information Value Date Recorded Sex Assigned at Not on file Gender Identity Not on file Sexual Orientation Not on file Plan of Treatment Health Maintenance Due Date Last Done Comments Hepatitis C Screen 1955 RSV Immunization ( o r 60+ Years) (1 - 1-dose 60+ series) 2013 Fall Risk Screening 2018 COVID-19 Vaccine (2022- season) 2023 Care Teams Employment Law Attorney Relationship Specialty Start Date End Date Edu Tee MD [address] [place] [address] PCP - General 08/08/15
--- OUTSIDE RECORDS SUMMARY | 2024-05-17 13:09 | XMS_ITS | Encounter Summary ---
Author Organization [facility] Address [address] [place] [address] Care Team Providers Care Veneer Jointer Offbearer Name Role Phone Unavailable Primary Care Provider Unavailabl e Encounter Details Date Type Department Care Team (Late st Contact Info) Description 12/08/2006 Results Only [facility] - Maple conversion [address] [place] [address] Ashley Drake FNP [address] [place], [place] [id number] Social History Tobacco Use Types Packs/Day Years Used Date Smoking Tobacco: Never Assessed Sex and Gender Information Value Date Recorded Sex Assigned at Not on file Gender Identity Not on file Sexual Orientation Not on file documented as of this encounter Plan of Treatment Not on file documented as of this encounter Procedures Procedure Name Priority Date/Time Associated Diagnosis Comments CYTOPATHOLOGY Routine 12/08/2006 0:00 EST documented in this encounter Results * CYTOPATHOLOGY (12/08/2006 0:00 EST) Pathology Report: CYTOPATHOLOGY REPORT Reports generated via electronic interface contain original data; however they are lacking the format of the original report. Caution should be taken when reading/interpreti ng unformatted reports. Name: ? VICKI TRAORE ? Accession #: ? [id number] : ? 1955 (Age: 51) ??F ?Collect Date: ? 12/08/2006 Location: ? [facility] ? Receive Date: ? 12/12/2006 Provider: ?ASHLEY DRAKE PROGRAM DIRECTOR/MUSIC DIRECTOR Copy to: ? Specimen/Source: ?ThinPrep Pap Test, Cervix/Endocervix, processed on [employer] ThinPrep Imaging System, with manual evaluation Last Menstrual Period: ? Other: ? HPVA - HPV testing requested if ASC-US on the current ThinPrep Pap test. ? SPECIMEN ADEQUACY ? Satisfactory for Evaluation - transformation zone component present GENERAL CATEGORIZATION ? Negative for Intraepithelial Lesion or Malignancy ? Document reviewed and electronically signed by: ? COOKIE Franco(ASCP) ? Report Date: ??12/13/2006 12:33 End of Report ANAM ROSAS 12/08/2006 12/12/2006 Ashley Drake PROGRAM DIRECTOR/MUSIC DIRECTOR PATHOLOGY ORDERABLES ANAM ROSAS [address] [place] [address] documented in this encounter Visit Diagnoses Not on filedocumented in this encounter
--- OUTSIDE RECORDS SUMMARY | 2024-05-17 13:09 | XMS_ITS | Encounter Summary ---
Author Organization [facility] Address [address] [place] [address] Care Team Providers Care Furniture Lumber Production Worker Name Role Phone Unavailable Primary Care Provider Unavailabl e Encounter Details Date Type Department Care Team (Late st Contact Info) Description 12/26/2007 Results Only [facility] - Maple conversion [address] [place] [address] Humble Lauren, DO [address] [facility] [address] [place], [place] [id number] Social History Tobacco Use Types Packs/Day Years Used Date Smoking Tobacco: Never Assessed Sex and Gender Information Value Date Recorded Sex Assigned at Not on file Gender Identity Not on file Sexual Orientation Not on file documented as of this encounter Plan of Treatment Not on file documented as of this encounter Procedures Procedure Name Priority Date/Time Associated Diagnosis Comments SURGICAL PATHOLOGY Routine 12/26/2007 0:00 EDT documented in this encounter Results * SURGICAL PATHOLOGY (12/26/2007 0:00 EDT) Pathology Report: SURGICAL PATHOLOGY REPORT Reports generated via electronic interface contain original data; however they are lacking the format of the original report. Caution should be taken when reading/interpreti ng unformatted reports. Name: ? VICKI TRAORE ? Accession #: ? [id number] ? : ? 1955 (Age: 52) ??F ? Collect Date: ? 12/26/2007 ? Location: ? [facility] ? Receive Date: ? 12/27/2007 ? Provider: HUMBLE LAUREN DO Copy to: ALLEGRA GONZALEZ MD ? Final Pathologic Diagnosis: ? Colon, ileocecal valve, polyp, biopsy: - Tubular adenoma. Document reviewed and electronically signed by: VANI TAVRAES MD Report ??Date: 12/28/2007 15:24 By the signature above, the attending physician certifies that he/she has personally conducted a gross and/or microscopic examination of the described specimens and rendered or confirmed the above diagnosis. Specimen(s) Received: ? Polyp ileocecal valve Clinical History: ? Screening Gross Description: ? Received in Hollande's fixative labelled Eugenie and polyp ileocecal valve is a 0.3 x 0.2 x 0.2 cm firm piece of tissue which is submitted intact in one cassette. ??(Tamara Mena)/mpl End of Report ANAM ROSAS 12/26/2007 12/27/2007 11: 58 EDT Humble Lauren DO PATHOLOGY ORDER LUIS FERNANDO [facility] [address] [place] [address] documented in this encounter Visit Diagnoses Not on filedocumented in this encounter
--- OUTSIDE RECORDS SUMMARY | 2024-05-17 13:09 | XMS_ITS | Encounter Summary ---
Author Organization [facility] Address [address] [place] [address] Care Team Providers Care Commercial Coordinator Name Role Phone Unavailable Primary Care Provider Unavailabl e Encounter Details Date Type Department Care Team (Late st Contact Info) Description 10/30/2002 Results Only [facility] - Maple conversion [address] [place] [address] Ashley Drake FNP [address] [place], [place] [id number] Social History Tobacco Use Types Packs/Day Years Used Date Smoking Tobacco: Never Assessed Sex and Gender Information Value Date Recorded Sex Assigned at Not on file Gender Identity Not on file Sexual Orientation Not on file documented as of this encounter Plan of Treatment Not on file documented as of this encounter Procedures Procedure Name Priority Date/Time Associated Diagnosis Comments CYTOPATHOLOGY Routine 10/30/2002 0:00 EST documented in this encounter Results * CYTOPATHOLOGY (10/30/2002 0:00 EST) Pathology Report: CYTOPATHOLOGY REPORT Reports generated via electronic interface contain original data; however they are lacking the format of the original report. Caution should be taken when reading/interpreti ng unformatted reports. Name: ? VICKI TRAORE ? Accession #: ? [id number] : ? 1955 (Age: 46) ??F ?Collect Date: ? 10/30/2002 Location: ? [facility] ? Receive Date: ? 11/02/2002 Provider: ?ASHLEY POLLACKP Copy to: ? Specimen/Source: ?ThinPrep Pap Test, Cervix/Endocervix Last Menstrual Period: ? 10/25/02 ? SPECIMEN ADEQUACY ? Satisfactory for Evaluation - transformation zone component present GENERAL CATEGORIZATION ? Negative for Intraepithelial Lesion or Malignancy ? Document reviewed and electronically signed by: ? COOKIE Lawton(ASCP) ? Report Date: ??11/05/2002 11:20 End of Report ANAM ROSAS 10/30/2002 11/02/2002 Ashley Drake GROUP FITNESS INSTRUCTOR PATHOLOGY ORDERABLES ANAM ROSAS [address] [place] [address] documented in this encounter Visit Diagnoses Not on filedocumented in this encounter
--- OUTSIDE RECORDS SUMMARY | 2024-05-17 13:09 | XMS_ITS | Encounter Summary ---
Author Organization [facility] Address [address] [place] [address] Care Team Providers Care Safety Deposit Supervisor Name Role Phone Unavailable Primary Care Provider Unavailabl e Encounter Details Date Type Department Care Team (Late st Contact Info) Description 01/21/2015 Results Only [facility]- [facility] [phone] Ashley Drake FNP [address] [place], [place] [phone] Social History Tobacco Use Types Packs/Day Years [...] Diagnosis Comments PAP TEST- RESULT ONLY Routine 01/21/2015 0:00 EDT documented in this encounter Results * PAP TEST- RESULT ONLY (01/21/2015 0:00 EDT) Pathology Report: CYTOPATHOLOGY REPORT Reports generated via electronic interface contain original data; however they are lacking the format of the original report. Caution should be taken when reading/interpreti ng unformatted reports. Name: ? VICKI TRAORE ? Accession #: ? [id number] : ? 1955 (Age: 59) ??F ?Collect Date: ? 01/21/2015 Location: ? [facility] ? Receive Date: ? 01/23/2015 Provider: ?ASHLEY POLLACKP Copy to: ? Specimen/Source: ?Pap Test, Cervix/Endocervix, ThinPrep Imaging System with manual evaluation Last Menstrual Period: ? AZALEA ? SPECIMEN ADEQUACY ? Satisfactory for Evaluation - assessment of transformation zone component not applicable ( e.g. atrophy, vaginal sample, hysterectomy) - scant squamous epithelial component - obscuring contamination, possibly lubricant GENERAL CATEGORIZATION ? Negative for Intraepithelial Lesion or Malignancy ? Document reviewed and electronically signed by: ? COOKIE Lawton(ASCP) ? Report Date: ??01/29/2015 13:29 End of Report [facility] 01/21/2015 01/23/2015 Ashley FERGUSON PATHOLOGY ORDERABLES [facility] [address] [place] [address] documented in this encounter Visit Diagnoses Not on filedocumented in this encounter
--- OUTSIDE RECORDS SUMMARY | 2024-05-17 13:09 | XMS_ITS | Encounter Summary ---
Author Organization [facility] Address [address] [place] [address] Care Team Providers Care Full Roll Inspector Name Role Phone Unavailable Primary Care Provider Unavailabl e Encounter Details Date Type Department Care Team (Late st Contact Info) Description 12/02/2003 Results Only [facility] - Maple conversion [address] [place] [address] Rajwinder Gerard NP [address] [place] [phone] Social History Tobacco Use Types Packs/Day Years [...] Comments HPV DETECTION, HIGH RISK TYPES Routine 12/02/2003 15:00 EST documented in this encounter Results * HUMAN PAPILLOMA VIRUS DNA TEST (12/02/2003 15:00 EST) Specimen Description Cervix, ThinPrep vial [facility] Result Negative for HPV types 16, 18, 31, 33, 35, 39, 45, 51, 52, 56, 58, 59, and 68. [facility] Report Status Final [id number] [facility] 12/02/2003 15:0 0 EST 12/05/2003 15:00 EST Rajwinder Gerard NP MICROBIOLOGY - GENER AL ORDERABLES [facility] [address] [place] [address] documented in this encounter Visit Diagnoses Not on filedocumented in this encounter
--- OUTSIDE RECORDS SUMMARY | 2024-05-17 13:09 | XMS_ITS | Encounter Summary ---
Author Organization [facility] Address [address] [place] [address] Care Team Providers Care Greek Professor Name Role Phone Unavailable Primary Care Provider Unavailabl e Encounter Details Date Type Department Care Team (Late st Contact Info) Description 12/12/2007 Results Only [facility] - Maple conversion [address] [place] [address] Ashley Drake FNP [address] [place], [place] [phone] Social History Tobacco Use Types Packs/Day Years Used Date Smoking Tobacco: Never Assessed Sex and Gender Information Value Date Recorded Sex Assigned at Not on file Gender Identity Not on file Sexual Orientation Not on file documented as of this encounter Plan of Treatment Not on file documented as of this encounter Procedures Procedure Name Priority Date/Time Associated Diagnosis Comments CYTOPATHOLOGY Routine 12/12/2007 0:00 EDT documented in this encounter Results * CYTOPATHOLOGY (12/12/2007 0:00 EDT) Pathology Report: CYTOPATHOLOGY REPORT Reports generated via electronic interface contain original data; however they are lacking the format of the original report. Caution should be taken when reading/interpreti ng unformatted reports. Name: ? VICKI TRAORE ? Accession #: ? [id number] : ? 1955 (Age: 52) ??F ?Collect Date: ? 12/12/2007 Location: ? [facility] ? Receive Date: ? 12/13/2007 Provider: ?ASHLEY POLLACKP Copy to: ? Specimen/Source: ?ThinPrep Pap Test, Cervix/Endocervix, processed on [employer] ThinPrep Imaging System, with manual evaluation Last Menstrual Period: ? 11/23/07 Other: ? HPVA - HPV testing requested if ASC-US on the current ThinPrep Pap test. ? SPECIMEN ADEQUACY ? Satisfactory for Evaluation - assessment of transformation zone component not applicable ( e.g. atrophy, vaginal sample, hysterectomy) GENERAL CATEGORIZATION ? Negative for Intraepithelial Lesion or Malignancy ? Document reviewed and electronically signed by: ? COOKIE Mcmahan(ASCP) ? Report Date: ??12/19/2007 07:36 End of Report ANAM ROSAS 12/12/2007 12/13/2007 Ashley POLLACKP PATHOLOGY ORDERABLES Performing Organization Address City/State/[facility] Co de Phone Number ANAM ROSAS [address] [place] [address] documented in this encounter Visit Diagnoses Not on filedocumented in this encounter
--- OUTSIDE RECORDS SUMMARY | 2024-05-17 13:09 | XMS_ITS | Encounter Summary ---
Author Organization [facility] Address [address] [place] [address] Care Team Providers Care Neuropsychology Medical Consultant Name Role Phone Edu Tee MD Primary Care Provider [phone] Encounter Details Date Type Department Care Team (Late st Contact Info) Description 01/29/2019 Results Only [facility] [phone] Supa Rocha, QUARRYING MANAGER [address] [facility] [address] [place] [phone] Social History Tobacco Use Types Packs/Day Years [...] Diagnosis Comments PAP TEST- RESULT ONLY Routine 01/29/2019 0:00 EDT documented in this encounter Results * PAP TEST- RESULT ONLY (01/29/2019 0:00 EDT) Pathology Report: CYTOPATHOLOGY REPORT Reports generated via electronic interface contain original data; however they are lacking the format of the original report. Caution should be taken when reading/interpreti ng unformatted reports. Name: ? VICKI TRAORE ? Accession #: ? [id number] ? : ? 1955 (Age: 63) ??F ?Collect Date: ? 01/29/2019 ? Location: ? [facility] ? Receive Date: ? 01/31/2019 ? Provider: SUPA ROCHA QUARRYING MANAGER Copy to: ? Final Report SPECIMEN ADEQUACY ? Satisfactory for Evaluation - assessment of transformation zone component not applicable ( e.g. atrophy, vaginal sample, hysterectomy) GENERAL CATEGORIZATION ? Negative for Intraepithelial Lesion or Malignancy ?? Other: Additional clinical information: Z00.00 Z12.4 Z01.419 Specimen/Source: ??Pap Test, Cervix/Endocervix, ThinPrep Imaging System with manual evaluation Document reviewed and electronically signed by: ? COOKIE Franco(ASCP) ? Report ??Date: 02/01/2019 11:36 HPV with Pap Test ? Date Ordered: ? 02/01/2019 ? Status: ?? Signed Out ?Date Complete: ? 02/02/2019 ? By: ??System Interface ? Date Reported: ? 02/02/2019 ? Interpretation RESULT: Negative for HPV. No E6 or E7 mRNA is detected from HPV types 16,18,31,33,35, 39,45,51,52,56,58, 59,66, and 68 by cage manager mediated amplification. Comments Document reviewed and electronically signed by: ? System Interface ? Report date: 02/02/2019 By the signature above, the attending physician certifies that he/she has personally conducted a gross and/or microscopic examination of the described specimens and rendered or confirmed the above diagnosis. End of Report [facility] 01/29/2019 01/31/2019 Supa Rocha QUARRYING MANAGER PATHOLOGY ORDERAB LES [facility] [address] [place] [address] documented in this encounter Visit Diagnoses Not on filedocumented in this encounter Care Teams Neuropsychology Medical Consultant Relationship Specialty Start Date End Date Edu Tee MD [address] [place] [address] PCP - General 08/08/15 documented as of this encounter
[2024-05-17 14:30] LABS: HGB 12.5 g/dL (11.2-15.7); MCH 27.7 pg (27.0-33.0); MCHC 32.1 % (32.0-36.0); MCV 87 fL (80-95); MPV 10.5 fL (8.0-11.0); Platelet Count 231 10^3/uL (130-400); RBC 4.51 10^6/uL (3.93-5.22); RDW 13.2 % (11.7-14.6); RDW-SD 41.4 fL; WBC 4.73 10^3/uL (4.4-10.8)
[2024-05-17 18:48] LABS: Iron 28 ug/dL (50-170); Total Iron Binding Capacity 403 ug/dL (250-450); Transferrin Sat 7 % (15-50)
[2024-05-17 19:11] LABS: ALT 30 U/L (14-59); AST 22 U/L (15-37); Albumin 4.3 g/dL (3.4-5.0); Alkaline Phosphatase 68 U/L (46-116); Anion Gap 7.7 mmol/L (3-11); BUN 18 mg/dL (7-18); Bilirubin, Total 0.37 mg/dL (0.2-1.0); CO2 29.3 mmol/L (21.0-32.0); CREATININE 0.7 mg/dL (0.55-1.02); Calcium 9.7 mg/dL (8.5-10.1); Chloride 106 mmol/L (98-107); Estimated GFR 92.98 (mL/min/1.73m2); Ferritin 16 ng/mL (8-252); Glucose 88 mg/dL (74-106); Potassium 4.7 mmol/L (3.5-5.1); Sodium 143 mmol/L (136-145); TSH (W/Ref FT4) 2.63 uIU/mL (0.36-3.74); Vitamin D 25 Total 56.6 ng/mL (30-100)
== END 2024-05-17 13:07 | disposition home or self-care (01) ==
LOC: NCHCN 13:06
PROVIDERS: PCP Nurse Practitioner Family; Visit Provider Nurse Practitioner Family
DX: D64.9 Anemia, unspecified (principal); M85.89 Other specified disorders of bone density and structure, multiple sites
CPT/HCPCS: 80053; 82306; 85027; 82728; 83540; 83550; 84443

== ENCOUNTER 2024-05-24 02:39 | Outpatient (CLI) | payer MEDICARE, SELFPAY ==
--- OUTSIDE RECORDS SUMMARY | 2024-05-24 02:41 | XMS_ITS | Clinical Summary ---
Author Organization [facility] Address [address] [place] [address] Care Team Providers Care Veneer Splicer Name Role Phone Edu Tee MD Primary Care Provider [phone] Social History Tobacco Use Types Packs/Day Years [...] COVID-19 Vaccine (2022- season) 2023 Care Teams Veneer Splicer Relationship Specialty Start Date End Date Edu Tee MD [address] [place] [address] PCP - General 08/08/15
--- OUTSIDE RECORDS SUMMARY | 2024-05-24 02:41 | XMS_ITS | Encounter Summary ---
Author Organization [facility] Address [address] [place] [address] Care Team Providers Care Industrial Ecologist Name Role Phone Edu Tee MD Primary Care Provider [phone] Encounter Details Date Type Department Care Team (Late st Contact Info) Description 01/29/2019 Results Only [facility] [phone] Supa Rocha, ELECTRIC FRYING PAN REPAIRER [address] [facility] [address] [place] [phone] Social History Tobacco Use Types Packs/Day Years [...] ? VICKI TRAORE ? Accession #: ? [id number] ? : ? 1955 (Age: 63) ??F ?Collect Date: ? 01/29/2019 ? Location: ? [facility] ? Receive Date: ? 01/31/2019 ? Provider: SUPA ROCHA ELECTRIC FRYING PAN REPAIRER Copy to: ? Final Report SPECIMEN ADEQUACY [...] types 16,18,31,33,35, 39,45,51,52,56,58, 59,66, and 68 by boat motor mechanic mediated amplification. Comments Document reviewed and electronically signed by: ? System Interface ? Report date: 02/02/2019 By the signature above, the attending physician certifies that he/she has personally conducted a gross and/or microscopic examination of the described specimens and rendered or confirmed the above diagnosis. End of Report [facility] 01/29/2019 01/31/2019 Supa Rocha ELECTRIC FRYING PAN REPAIRER PATHOLOGY ORDERAB LES [facility] [address] [place] [address] documented in this encounter Visit Diagnoses Not on filedocumented in this encounter Care Teams Industrial Ecologist Relationship Specialty Start Date End Date Edu Tee MD [address] [place] [address] PCP - General 08/08/15 documented as of this encounter
--- OUTSIDE RECORDS SUMMARY | 2024-05-24 02:41 | XMS_ITS | Encounter Summary ---
Author Organization [facility] Address [address] [place] [address] Care Team Providers Care Rn Cardiovascular Icu Name Role Phone Unavailable Primary Care Provider Unavailabl e Encounter Details Date Type Department Care Team (Late st Contact Info) Description 01/16/2014 Results Only [facility] [address] [place], [place] [address] Ashley Drake FNP [address] [place], [place] [phone] Social History Tobacco Use Types Packs/Day Years [...] ? VICKI TRAORE ? Accession #: ? [id number] ? : ? 1955 (Age: 58) ??F ?Collect Date: ? 01/16/2014 ? Location: ? [facility] ? Receive Date: ? 01/17/2014 ? Provider: ASHLEY DRAKE TRUCK LOADER OVERHEAD CRANE Copy to: ? Final Report SPECIMEN ADEQUACY [...] types 16,18,31,33,35, 39,45,51,52,56,58, 59,66, and 68 by block breaker mediated amplification. Comments Document reviewed and electronically signed by: ? System Interface ? Report date: 01/25/2014 By the signature above, the attending physician certifies that he/she has personally conducted a gross and/or microscopic examination of the described specimens and rendered or confirmed the above diagnosis. End of Report [facility] 01/16/2014 01/17/2014 Ashley Drake TRUCK LOADER OVERHEAD CRANE PATHOLOGY ORDERABLES Performing Organization Address City/State/[facility] Co de Phone Number ANAM ROSAS [address] [place] [address] documented in this encounter Visit Diagnoses Not on filedocumented in this encounter
--- OUTSIDE RECORDS SUMMARY | 2024-05-24 02:41 | XMS_ITS | Encounter Summary ---
Author Organization [facility] Address [address] [place] [address] Care Team Providers Care Master Cosmetologist Name Role Phone Unavailable Primary Care Provider Unavailabl e Encounter Details Date Type Department Care Team (Late st Contact Info) Description 12/26/2007 Results Only [facility] - Maple conversion [address] [place] [address] Humble Lauren, DO [address] [facility] [address] [place], [place] [id number] Social History Tobacco Use Types Packs/Day Years [...] ? VICKI TRAORE ? Accession #: ? [id number] ? : ? 1955 (Age: 52) ??F ? Collect Date: ? 12/26/2007 ? Location: ? [facility] ? Receive Date: ? 12/27/2007 ? Provider: HUMBLE LAUREN DO Copy to: ALLEGRA GONZALEZ MD ? Final Pathologic Diagnosis: ? Colon, ileocecal valve, polyp, biopsy: - Tubular adenoma. Document reviewed and electronically signed by: VANI TAVARES MD Report ??Date: 12/28/2007 15:24 By the [...] ORDER LUIS FERNANDO [facility] [address] [place] [address] documented in this encounter Visit Diagnoses Not on filedocumented in this encounter
--- OUTSIDE RECORDS SUMMARY | 2024-05-24 02:41 | XMS_ITS | Encounter Summary ---
Author Organization [facility] Address [address] [place] [address] Care Team Providers Care Machine Pack Assembler Name Role Phone Unavailable Primary Care Provider Unavailabl e Encounter Details Date Type Department Care Team (Late st Contact Info) Description 12/24/2008 Before PRISM Converted Visit (Maple) [facility] - Maple conversion [address] [place] [address] Ashley Drake FNP [address] [place], [place] [phone] Social History Tobacco Use Types Packs/Day Years [...] ? VICKI TRAORE ? Accession #: ? [id number] ? : ? 1955 (Age: 53) ??F [...] of Report ? [facility] 12/24/2008 12/26/2008 Ashley Drake NUT SIFTER PATHOLOGY ORDERABLES [facility] [address] [place] [address] documented in this encounter Visit Diagnoses Not on filedocumented in this encounter
--- OUTSIDE RECORDS SUMMARY | 2024-05-24 02:41 | XMS_ITS | Encounter Summary ---
Author Organization [facility] Address [address] [place] [address] Care Team Providers Care Coach Driver Name Role Phone Unavailable Primary Care Provider Unavailabl e Encounter Details Date Type Department Care Team (Late st Contact Info) Description 12/02/2003 Results Only [facility] - Maple conversion [address] [place] [address] Rajwinder Gerard NP [address] [place] [address] [phone] Social History Tobacco Use Types Packs/Day Years [...] 68. [facility] Report Status Final [id number] [facility] 12/02/2003 15:0 0 EST 12/05/2003 15:00 EST Rajwinder Gerard NP MICROBIOLOGY - GENER AL ORDERABLES [facility] [address] [place] [address] documented in this encounter Visit Diagnoses Not on filedocumented in this encounter
--- OUTSIDE RECORDS SUMMARY | 2024-05-24 02:41 | XMS_ITS | Referral Summary ---
Author Organization [facility] Address [address] [place] [address] Care Team Providers Care Poultry Boner Name Role Phone Edu Tee MD Primary Care Provider [phone] Social History Tobacco Use Types Packs/Day Years Used Date Smoking Tobacco: Never Assessed Sex and Gender Information Value Date Recorded Sex Assigned at Not on file Gender Identity Not on file Sexual Orientation Not on file Plan of Treatment Not on file Care Teams Poultry Boner Relationship Specialty Start Date End Date Edu Tee MD [address] [place] [address] PCP - General 08/08/15
--- OUTSIDE RECORDS SUMMARY | 2024-05-24 02:41 | XMS_ITS | Encounter Summary ---
Author Organization [facility] Address [address] [place] [address] Care Team Providers Care Base Remover Name Role Phone Edu Tee MD Primary Care Provider [phone] Encounter Details Date Type Department Care Team (Late st Contact Info) Description 05/26/2023 Lab Requisition [facility] Pathology & Laboratory Medicine - [facility] [address] [place] [address] Suzi Arteaga MD [address] [place] [phone] Encounter for other general examination Social History [...] management options, if applicable. 05/30/2023 9:57 EDT [facility] Final Diagnosis A. SKIN OF SCAPULA, LEFT, SHAVE BIOPSY: - Dermal scar with mixed inflammation. See comment. 05/30/2023 9:57 [facility] Diagnosis Comment Multiple [...] process. Clinical correlation is recommended. 05/30/2023 9:57 [facility] Attestation By the signature below, the attending physician certifies that they have 1) personally conducted a gross and/or microscopic examination of the described specimen(s), and/or personally interpreted the results of laboratory testing of the described specimen(s), and 2) personally rendered or confirmed the above diagnosis. 05/30/2023 9:57 [facility] at 0957 Clinical History 4 mm bleeding lesion 05/30/2023 9:57 [facility] Gross Description A. [...] [facility] [place]O(ASCP) 05/26/2023 9:06 05/30/2023 9:57 T [facility] Performing Lab [facility] 05/30/2023 9:57 [facility] Scanned Images 05/30/2023 9:57 [facility] Tissue SPECIMEN FROM SKIN / Unknown 05/25/2023 11:00 EDT 05/26/2023 7:52 EDT Suzi Arteaga MD PATHOLOGY ORDERABLES [facility] [address] [place] [address] documented in this encounter Visit Diagnoses Diagnosis Encounter for other general examination documented in this encounter Care Teams Base Remover Relationship Specialty Start Date End Date Edu Tee MD [address] [place] [address] PCP - General 08/08/15 documented as of this encounter
--- OUTSIDE RECORDS SUMMARY | 2024-05-24 02:41 | XMS_ITS | Encounter Summary ---
Author Organization [facility] Address [address] [place] [address] Care Team Providers Care Repossessor Name Role Phone Unavailable Primary Care Provider Unavailabl e Encounter Details Date Type Department Care Team (Late st Contact Info) Description 12/12/2007 Results Only [facility] - Maple conversion [address] [place] [address] Ashley Drake FNP [address] [place], [place] [phone] Social History Tobacco Use Types Packs/Day Years [...] ? VICKI TRAORE ? Accession #: ? [id number] : ? 1955 (Age: 52) ??F ?Collect Date: ? 12/12/2007 Location: ? [facility] ? Receive Date: ? 12/13/2007 Provider: ?ASHLEY POLLACKP Copy to: ? Specimen/Source: ?ThinPrep Pap Test, Cervix/Endocervix, processed on [employer] ThinPrep Imaging System, with manual evaluation Last [...] Ashley POLLACKP PATHOLOGY ORDERABLES Performing Organization Address City/State/[facility] Co de Phone Number [facility] [address] [place] [address] documented in this encounter Visit Diagnoses Not on filedocumented in this encounter
--- OUTSIDE RECORDS SUMMARY | 2024-05-24 02:41 | XMS_ITS | Encounter Summary ---
Author Organization [facility] Address [address] [place] [address] Care Team Providers Care Repair Specialist Name Role Phone Unavailable Primary Care Provider Unavailabl e Encounter Details Date Type Department Care Team (Late st Contact Info) Description 11/20/2001 Results Only [facility] - Maple conversion [address] [place] [address] Ashley Drake FNP [address] [place], [place] [phone] Social History Tobacco Use Types Packs/Day Years [...] Ashley POLLACKP PATHOLOGY ORDERABLES [facility] [address] [place] [address] documented in this encounter Visit Diagnoses Not on filedocumented in this encounter
--- OUTSIDE RECORDS SUMMARY | 2024-05-24 02:41 | XMS_ITS | Encounter Summary ---
Author Organization [facility] Address [address] [place] [address] Care Team Providers Care Phytopathology Teacher Name Role Phone Unavailable Primary Care Provider Unavailabl e Encounter Details Date Type Department Care Team (Late st Contact Info) Description 12/08/2006 Results Only [facility] - Maple conversion [address] [place] [address] Ashley Drake FNP [address] [place], [place] [id number] Social History Tobacco Use Types Packs/Day Years [...] ? VICKI TRAORE ? Accession #: ? [id number] : ? 1955 (Age: 51) ??F ?Collect Date: ? 12/08/2006 Location: ? [facility] ? Receive Date: ? 12/12/2006 Provider: ?ASHLEY DRAKE FLIGHT DATA TECHNICIAN Copy to: ? Specimen/Source: ?ThinPrep Pap Test, Cervix/Endocervix, processed on [employer] ThinPrep Imaging System, with manual evaluation Last [...] Report [facility] 12/08/2006 12/12/2006 Ashley Drake FLIGHT DATA TECHNICIAN PATHOLOGY ORDERABLES [facility] [address] [place] [address] documented in this encounter Visit Diagnoses Not on filedocumented in this encounter
--- OUTSIDE RECORDS SUMMARY | 2024-05-24 02:41 | XMS_ITS | Encounter Summary ---
Author Organization [facility] Address [address] [place] [address] Care Team Providers Care Tool Design Drafter Name Role Phone Unavailable Primary Care Provider Unavailabl e Encounter Details Date Type Department Care Team (Late st Contact Info) Description 11/23/2005 Results Only [facility] Medicine [address] [address] Michell Solano MD [address] [place] [address] Social History Tobacco Use Types [...] ? VICKI TRAORE ? Accession #: ? [id number] : ? 1955 (Age: 50) ??F ?Collect Date: ? 11/23/2005 Location: ? [facility] ? Receive Date: ? 11/25/2005 Provider: ?MICHELL SOLANO MD Copy to: ? Specimen/Source: ?ThinPrep Pap Test, Endocervix, processed on [employer] REO ThinPrep Imaging System, with manual evaluation Last [...] Solano MD PATHOLOGY ORDERABLES Performing Organization Address City/State/[facility] Co de Phone Number [facility] [address] [place] [address] documented in this encounter Visit Diagnoses Not on filedocumented in this encounter
--- OUTSIDE RECORDS SUMMARY | 2024-05-24 02:41 | XMS_ITS | Encounter Summary ---
Author Organization [facility] Address [address] [place] [address] Care Team Providers Care Swing Ride Operator Name Role Phone Unavailable Primary Care Provider Unavailabl e Encounter Details Date Type Department Care Team (Late st Contact Info) Description 10/30/2002 Results Only [facility] - Maple conversion [address] [place] [address] Ashley Drake FNP [address] [place], [place] [phone] Social History Tobacco Use Types Packs/Day Years [...] ? VICKI TRAORE ? Accession #: ? [id number] : ? 1955 (Age: 46) ??F ?Collect [...] Report [facility] 10/30/2002 11/02/2002 Ashley Drake SUPPLY CHAIN VICE PRESIDENT PATHOLOGY ORDERABLES [facility] [address] [place] [address] documented in this encounter Visit Diagnoses Not on filedocumented in this encounter
--- OUTSIDE RECORDS SUMMARY | 2024-05-24 02:41 | XMS_ITS | Encounter Summary ---
Author Organization [facility] Address [address] [place] [address] Care Team Providers Care Gin Pole Operator Name Role Phone Unavailable Primary Care Provider Unavailabl e Encounter Details Date Type Department Care Team (Late st Contact Info) Description 10/28/2003 Results Only [facility] - Maple conversion [address] [place] [address] Rubio Richards NP [address] [place] [phone] Social History Tobacco Use Types Packs/Day Years [...] testing. [facility] Report Status Final [id number] [facility] 10/28/2003 16:3 0 EST 11/14/2003 13:32 EST Rubio Richards NP MICROBIOLOGY - GENER AL ORDERABLES [facility] [address] [place] [address] * CYTOPATHOLOGY (10/28/2003 0:00 EST) Pathology Report: CYTOPATHOLOGY REPORT Reports generated via electronic interface contain original data; however they are lacking the format of the original report. Caution should be taken when reading/interpreti ng unformatted reports. Name: ? VICKI TRAORE ? Accession #: ? [id number] : ? 1955 (Age: 47) ??F ?Collect Date: ? 10/28/2003 Location: ? [facility] ? Receive Date: ? 10/30/2003 Provider: ?RUBIO RICHARDS DIGITAL MARKETING PROGRAM MANAGER Copy to: ? Specimen/Source: ?ThinPrep Pap [...] than age 40. EDUCATIONAL NOTES/RECOMMENDATI ONS ? [facility] recommends following the 2001 Consensus Guidelines for the Management of Women with Cervical Cytological Abnormalities (MACI,2002;287:212 0-9). Management algorithms have been distributed by [facility] and are available online at www.ASCCP.org. ? [...] electronically signed by: ? KATHIA DUFF MD [facility] ? Report Date: ??11/13/2003 16:29 End of Report [facility] 10/28/2003 10/30/2003 Rubio Richards NP PATHOLOGY ORDERABLES [facility] [address] [place] [address] documented in this encounter Visit Diagnoses Not on filedocumented in this encounter
--- OUTSIDE RECORDS SUMMARY | 2024-05-24 02:41 | XMS_ITS | Encounter Summary ---
Author Organization [facility] Address [address] [place] [address] Care Team Providers Care Angle Dozer Operator Name Role Phone Unavailable Primary Care Provider Unavailabl e Encounter Details Date Type Department Care Team (Late st Contact Info) Description 01/05/2011 Results Only [facility] Laboratory Services - [facility] [address] [place], [place] [address] Ashley Drake FNP [address] [place], [place] [phone] Social History Tobacco Use Types Packs/Day Years [...] ? VICKI TRAORE ? Accession #: ? [id number] ? : ? 1955 (Age: 55) ??F [...] ? [facility] 01/05/2011 01/07/2011 Ashley Drake RUBBER DOWN PATHOLOGY ORDERABLES Performing Organization Address City[facility] Co de Phone Number [facility] [address] [place] [address] documented in this encounter Visit Diagnoses Not on filedocumented in this encounter
--- OUTSIDE RECORDS SUMMARY | 2024-05-24 02:41 | XMS_ITS | Encounter Summary ---
Author Organization [facility] Address [address] [place] [address] Care Team Providers Care American Indian Studies Professor Name Role Phone Unavailable Primary Care Provider Unavailabl e Encounter Details Date Type Department Care Team (Late st Contact Info) Description 10/26/2004 Results Only [facility] - Maple conversion [address] [place] [address] Rubio Richards, CAREER RESOURCE SPECIALIST [address] [place] [phone] Social History Tobacco Use Types Packs/Day Years [...] ? VICKI TRAORE ? Accession #: ? [id number] : ? 1955 (Age: 48) ??F ?Collect Date: ? 10/26/2004 Location: ? [facility] ? Receive Date: ? 10/28/2004 Provider: ?RUBIO RICHARDS CAREER RESOURCE SPECIALIST Copy to: ? Specimen/Source: ?ThinPrep Pap Test, [...] Richards NP PATHOLOGY ORDERABLES [facility] [address] [place] [address] documented in this encounter Visit Diagnoses Not on filedocumented in this encounter
--- OUTSIDE RECORDS SUMMARY | 2024-05-24 02:41 | XMS_ITS | Encounter Summary ---
Author Organization [facility] Address [address] [place] [address] Care Team Providers Care Vp Director Of Finance Name Role Phone Unavailable Primary Care Provider Unavailabl e Encounter Details Date Type Department Care Team (Late st Contact Info) Description 01/21/2015 Results Only [facility] [phone] Ashley Drake FNP [address] [place], [place] [phone] Social History Tobacco Use Types Packs/Day Years [...] ? VICKI TRAORE ? Accession #: ? [id number] : ? 1955 (Age: 59) ??F ?Collect [...] ??01/29/2015 13:29 End of Report [facility] 01/21/2015 01/23/2015 Ashley FERGUSON PATHOLOGY ORDERABLES [facility] [address] [place] [address] documented in this encounter Visit Diagnoses Not on filedocumented in this encounter
--- NOTE | 2024-05-24 08:15 | DI.MRI_ITS ---
Exam(s) MR BRAIN WO EXAM: MR BRAIN WO CLINICAL HISTORY: memory changes,cognitive impairment,r41.89 TECHNIQUE: Multiplanar multisequence MRI of the brain was performed. COMPARISON: CT CT BRAIN NECK CTA from 02/01/2024 FINDINGS: VENTRICLES AND EXTRA AXIAL SPACES: Normal in size and morphology for the patient's age. MIDLINE SHIFT: None. CEREBRAL PARENCHYMA: No focus of restricted diffusion to suggest acute infarct. No space-occupying le jihan identified. Mild atrophy consistent with the patient's age. Mild scattered foci of high signal in the white matter consistent with sequela of chronic microvascular disease. HEMORRHAGE: None. BRAINSTEM/CEREBELLUM: Normal. VISUALIZED PARANASAL SINUSES/MASTOIDS:Clear. Vasculature: Normal flow void. PITUITARY GLAND: Unremarkable. ORBITS: Unremarkable. IMPRESSION: Unremarkable MRI of the brain. DATA REPOSITORY:
== END 2024-05-24 02:59 ==
PROVIDERS: PCP Nurse Practitioner Family; Visit Provider Nurse Practitioner Adult Health
DX: R41.89 Other symptoms and signs involving cognitive functions and awareness (principal)
CPT/HCPCS: 70551

== ENCOUNTER → 2024-06-21 14:13 | Outpatient (BNVA) | payer MEDICARE, SELFPAY | PROVIDERS: PCP Nurse Practitioner Family; Referring Provider Nurse Practitioner Family; Visit Provider Nurse Practitioner Adult Health | DX: G30.9 Alzheimer's disease, unspecified (principal); F02.80 Dementia in other diseases classified elsewhere, unspecified severity, without behavioral disturbance, psychotic disturbance, mood disturbance, and anxiety | CPT/HCPCS: 99215 ==

== ENCOUNTER → 2024-08-23 09:23 | Outpatient (BNVA) | payer MEDICARE, SELFPAY | PROVIDERS: PCP Nurse Practitioner Family; Referring Provider Nurse Practitioner Family; Visit Provider Nurse Practitioner Adult Health | DX: G30.9 Alzheimer's disease, unspecified (principal); F02.80 Dementia in other diseases classified elsewhere, unspecified severity, without behavioral disturbance, psychotic disturbance, mood disturbance, and anxiety | CPT/HCPCS: 99213 ==

== ENCOUNTER 2024-09-13 15:03 | Outpatient (REF) | payer MEDICARE, SELFPAY ==
--- OUTSIDE RECORDS SUMMARY | 2024-09-13 15:05 | XMS_ITS | Encounter Summary ---
Author Organization [facility] Address [address] [place] [address] Care Team Providers Care Pharmacoepidemiologist Name Role Phone Unavailable Primary Care Provider Unavailabl e Encounter Details Date Type Department Care Team (Late st Contact Info) Description 10/28/2003 Results Only [facility] - Maple conversion [address] [place] [address] Rubio iRchards, HOSPITAL COORDINATOR [address] [place] [phone] Social History Tobacco Use Types Packs/Day Years Used Date Smoking Tobacco: Never Assessed Comments Unknown Sex and Gender Information Value Date Recorded Sex Assigned at Not on file Legal Sex Female 18:28 EST Gender Identity Not on file Sexual Orientation [...] testing. [facility] Report Status Final [id number] [facility] 10/28/2003 16:3 0 EST 11/14/2003 13:32 EST Rubio Richards NP MICROBIOLOGY - GENERAL ORDERABL ES Final Result [facility] [address] [place] [address] * CYTOPATHOLOGY (10/28/2003 0:00 EST) Pathology Report: CYTOPATHOLOGY REPORT Reports generated via electronic interface contain original data; however they are lacking the format of the original report. Caution should be taken when reading/interpreti ng unformatted reports. Name: ? VICKI TRAORE ? Accession #: ? [id number] : ? 1955 (Age: 47) ??F ?Collect Date: ? 10/28/2003 Location: ? [facility] ? Receive Date: ? 10/30/2003 Provider: ?RUBIO RICHARDS NP Copy to: ? Specimen/Source: ?ThinPrep Pap Test, [...] than age 40. EDUCATIONAL NOTES/RECOMMENDATI ONS ? [facility]ED [facility] recommends following the 2001 Consensus Guidelines for the Management of Women with Cervical Cytological Abnormalities (MACI,2002;287:212 0-9). Management algorithms have been distributed by [facility]ED [facility] and are available online at www.ASCCP.org. ? [...] electronically signed by: ? KATHIA DUFF MD [facility] ? Report Date: ??11/13/2003 16:29 End of Report [facility] 10/28/2003 10/30/2003 us Rubio Richards NP PATHOLOGY ORDERABLES Final Resu lt [facility] [address] [place] [address] documented in this encounter Visit Diagnoses Not on filedocumented in this encounter
--- OUTSIDE RECORDS SUMMARY | 2024-09-13 15:05 | XMS_ITS | Encounter Summary ---
Author Organization [facility] Address [address] [place] [address] Care Team Providers Care Life Teacher Name Role Phone Edu Tee MD Primary Care Provider [phone] Encounter Details Date Type Department Care Team (Late st Contact Info) Description 05/26/2023 Lab Requisition [facility] Pathology & Laboratory Medicine - [address] [address] Suzi Arteaga MD [address] [place] [phone] Encounter for other general examination Social History [...] management options, if applicable. 05/30/2023 9:57 EDT [facility] Final Diagnosis A. SKIN OF SCAPULA, LEFT, SHAVE BIOPSY: - Dermal scar with mixed inflammation. See comment. 05/30/2023 9:57 [facility] Diagnosis Comment Multiple levels of [...] process. Clinical correlation is recommended. 05/30/2023 9:57 [facility] Attestation By the signature below, the attending physician certifies that they have 1) personally conducted a gross and/or microscopic examination of the described specimen(s), and/or personally interpreted the results of laboratory testing of the described specimen(s), and 2) personally rendered or confirmed the above diagnosis. 05/30/2023 9:57 [facility] at 0957 Clinical History 4 mm bleeding lesion 05/30/2023 9:57 [facility] Gross Description A. Received in [...] [facility](ASCP) 05/26/2023 9:06 05/30/2023 9:57 T [facility] Performing Lab [facility] 05/30/2023 9:57 T [facility] Scanned Images 05/30/2023 9:57 [facility] Tissue SPECIMEN FROM SKIN / Unknown 05/25/2023 11:00 EDT 05/26/2023 7:52 EDT us Suzi Arteaga MD PATHOLOGY ORDERABLES Final Res ult [facility] [address] [place] [address] documented in this encounter Visit Diagnoses Diagnosis Encounter for other general examination documented in this encounter Care Teams Life Teacher Relationship Specialty Start Date End Date Edu Tee MD [address] [place], [place] [phone] PCP - General 08/08/15 documented as of this encounter
--- OUTSIDE RECORDS SUMMARY | 2024-09-13 15:05 | XMS_ITS | Encounter Summary ---
Author Organization [facility] Address [address] [place] [address] Care Team Providers Care Sustain Engineer Name Role Phone Unavailable Primary Care Provider Unavailabl e Encounter Details Date Type Department Care Team (Late st Contact Info) Description 01/16/2014 Results Only [facility] Laboratory Services - [facility] ([facility] [address] [place], [place] [address] Ashley Drake FNP [address] [place], [place] [phone] Social History Tobacco Use Types Packs/Day Years [...] ? VICKI TRAORE ? Accession #: ? [id number] ? : ? 1955 (Age: 58) ??F ?Collect Date: ? 01/16/2014 ? Location: ? [facility] ? Receive Date: ? 01/17/2014 ? Provider: ASHLEY DRAKE X RAY TECH Copy to: ? Final Report SPECIMEN ADEQUACY [...] types 16,18,31,33,35, 39,45,51,52,56,58, 59,66, and 68 by tube teller mediated amplification. Comments Document reviewed and electronically signed by: ? System Interface ? Report date: 01/25/2014 By the signature above, the attending physician certifies that he/she has personally conducted a gross and/or microscopic examination of the described specimens and rendered or confirmed the above diagnosis. End of Report [facility] 01/16/2014 01/17/2014 us Ashley Drake X RAY TECH PATHOLOGY ORDERABLES Final Resul t [facility] [address] [place] [address] documented in this encounter Visit Diagnoses Not on filedocumented in this encounter
--- OUTSIDE RECORDS SUMMARY | 2024-09-13 15:05 | XMS_ITS | Encounter Summary ---
Author Organization [facility] Address [address] [place] [address] Care Team Providers Care Assembler Molded Frames Name Role Phone Edu Tee MD Primary Care Provider [phone] Encounter Details Date Type Department Care Team (Late st Contact Info) Description 01/29/[address] Results [address] [facility] [phone] Supa Rocha, MANAGER PURCHASING [address] [facility] [address] [place] [phone] Social History Tobacco Use Types Packs/Day Years [...] ? VICKI TRAORE ? Accession #: ? [id number] ? : ? 1955 (Age: 63) ??F ?Collect Date: ? 01/29/2019 ? Location: ? [facility] ? Receive Date: ? 01/31/2019 ? Provider: SUPA ROCHA MANAGER PURCHASING Copy to: ? Final Report SPECIMEN ADEQUACY [...] types 16,18,31,33,35, 39,45,51,52,56,58, 59,66, and 68 by lung gun operator mediated amplification. Comments Document reviewed and electronically signed by: ? System Interface ? Report date: 02/02/2019 By the signature above, the attending physician certifies that he/she has personally conducted a gross and/or microscopic examination of the described specimens and rendered or confirmed the above diagnosis. End of Report [facility] 01/29/2019 01/31/2019 us Supa Rocha MANAGER PURCHASING PATHOLOGY ORDERABLES Arlene jha Result [facility] [address] [place] [address] documented in this encounter Visit Diagnoses Not on filedocumented in this encounter Care Teams Assembler Molded Frames Relationship Specialty Start Date End Date Edu Tee MD [address] [place] [address] PCP - General 08/08/15 documented as of this encounter
--- OUTSIDE RECORDS SUMMARY | 2024-09-13 15:05 | XMS_ITS | Clinical Summary ---
Author Organization [facility] Address [address] [place] [address] Care Team Providers Care Mlt Name Role Phone Edu Tee MD Primary Care Provider [phone] Social History Tobacco Use Types Packs/Day Years Used Date Smoking Tobacco: Never Assessed Comments Unknown Sex and Gender Information Value Date Recorded Sex Assigned at Not on file Legal Sex Female 18:28 EST Gender Identity Not on file Sexual Orientation Not on file Plan of Treatment Health Maintenance Due Date Last Done Comments Hepatitis C Screen 1955 Fall Risk Screening 2018 COVID-19 Vaccine (2023-25 season) 2024 RSV Immunization ( o r 60+ Years) (1 - 1-dose 75+ series) 2028 Insurance MEDICARE [employer] Care Teams Mlt Relationship Specialty Start Date End Date Edu Tee MD [address] [place] [address] PCP - General 08/08/15
--- OUTSIDE RECORDS SUMMARY | 2024-09-13 15:05 | XMS_ITS | Encounter Summary ---
Author Organization [facility] Address [address] [place] [address] Care Team Providers Care Hi Lo Driver Name Role Phone Unavailable Primary Care Provider Unavailabl e Encounter Details Date Type Department Care Team (Late st Contact Info) Description 11/23/2005 Results Only [facility] Medicine - [address] [address] Michell Solano MD Social History Tobacco Use Types Packs/Day Years [...] ? VICKI TRAORE ? Accession #: ? [id number] : ? 1955 (Age: 50) ??F ?Collect Date: ? 11/23/2005 Location: ? [facility] ? Receive Date: ? 11/25/2005 Provider: ?MICHELL SOLANO MD Copy to: ? Specimen/Source: ?ThinPrep Pap Test, Endocervix, processed on Quosis ThinPrep Imaging System, with manual evaluation Last [...] End of Report [facility] 11/23/2005 11/25/2005 us Michell Solano MD PATHOLOGY ORDERABLES Final Resul t [facility] [address] [place] [address] documented in this encounter Visit Diagnoses Not on filedocumented in this encounter
--- OUTSIDE RECORDS SUMMARY | 2024-09-13 15:05 | XMS_ITS | Encounter Summary ---
Author Organization [facility] Address [address] [place] [address] Care Team Providers Care Facilities Assistant Name Role Phone Unavailable Primary Care Provider Unavailabl e Encounter Details Date Type Department Care Team (Late st Contact Info) Description 12/12/2007 Results Only [facility] - [place] conversion [address] [place] [address] Ashley Drake FNP [address] [place], [place] [phone] Social History Tobacco Use Types Packs/Day Years [...] ? VICKI TRAORE ? Accession #: ? [id number] : ? 1955 (Age: 52) ??F ?Collect Date: ? 12/12/2007 Location: ? [facility] ? Receive Date: ? 12/13/2007 Provider: ?ASHLEY DRAKE VOICE WRITING REPORTER Copy to: ? Specimen/Source: ?ThinPrep Pap Test, Cervix/Endocervix, processed on Fungos ThinPrep Imaging System, with manual evaluation Last [...] End of Report [facility] 12/12/2007 12/13/2007 us Ashley Drake VOICE WRITING REPORTER PATHOLOGY ORDERABLES Final Resul t [facility] [address] [place] [address] documented in this encounter Visit Diagnoses Not on filedocumented in this encounter
--- OUTSIDE RECORDS SUMMARY | 2024-09-13 15:05 | XMS_ITS | Encounter Summary ---
Author Organization [facility] Address [address] [place] [address] Care Team Providers Care Director Of Consumer Marketing Name Role Phone Unavailable Primary Care Provider Unavailabl e Encounter Details Date Type Department Care Team (Late st Contact Info) Description 12/02/2003 Results Only [facility] - Maple conversion [address] [place] [address] Rajwinder Gerard, PROTECTION AGENT [address] [place] [phone] Social History Tobacco Use Types Packs/Day Years [...] EST) Specimen Description Cervix, ThinPrep vial [facility] Result Negative for HPV types 16, 18, 31, 33, 35, 39, 45, 51, 52, 56, 58, 59, and 68. [facility] Report Status Final [id number] [facility] 12/02/2003 15:0 0 EST 12/05/2003 15:00 EST Rajwinder Gerard NP MICROBIOLOGY - GENERAL ORDERABL ES Final Result [facility] [address] [place] [address] documented in this encounter Visit Diagnoses Not on filedocumented in this encounter
--- OUTSIDE RECORDS SUMMARY | 2024-09-13 15:05 | XMS_ITS | Encounter Summary ---
Author Organization [facility] Address [address] [place] [address] Care Team Providers Care Human Resources Partner Name Role Phone Unavailable Primary Care Provider Unavailabl e Encounter Details Date Type Department Care Team (Late st Contact Info) Description 12/24/2008 Before [facility] Converted Visit ([facility]) [facility] - Maple conversion [address] [place] [address] Ashley Drake FNP [address] [place], [place] [phone] Social History Tobacco Use Types Packs/Day Years [...] ? VICKI TRAORE ? Accession #: ? [id number] ? : ? 1955 (Age: 53) ??F [...] of Report ? [facility] 12/24/2008 12/26/2008 us Ashley Drake SCHOOL CLEANER PATHOLOGY ORDERABLES Final Resul t [facility] [address] [place] [address] documented in this encounter Visit Diagnoses Not on filedocumented in this encounter
--- OUTSIDE RECORDS SUMMARY | 2024-09-13 15:05 | XMS_ITS | Encounter Summary ---
Author Organization [facility] Address [address] [place] [address] Care Team Providers Care Dress Cap Maker Name Role Phone Unavailable Primary Care Provider Unavailabl e Encounter Details Date Type Department Care Team (Late st Contact Info) Description 10/30/2002 Results Only [facility] - Maple conversion [address] [place] [address] Ashley Drake FNP [address] [place], [place] [phone] Social History Tobacco Use Types Packs/Day Years [...] ? VICKI TRAORE ? Accession #: ? [id number] : ? 1955 (Age: 46) ??F ?Collect [...] End of Report [facility] 10/30/2002 11/02/2002 us Ashley POLLACKP PATHOLOGY ORDERABLES Final Resul t [facility] [address] [place] [address] documented in this encounter Visit Diagnoses Not on filedocumented in this encounter
--- OUTSIDE RECORDS SUMMARY | 2024-09-13 15:05 | XMS_ITS | Encounter Summary ---
Author Organization [facility] Address [address] [place] [address] Care Team Providers Care Commercial Field Inspector Name Role Phone Unavailable Primary Care Provider Unavailabl e Encounter Details Date Type Department Care Team (Late st Contact Info) Description 12/26/2007 Results Only [facility] - Maple conversion [address] [place] [address] Humble Lauren, DO [address] [facility] [address] [place], [place] [phone] Social History Tobacco Use Types Packs/Day Years [...] ? VICKI TRAORE ? Accession #: ? [id number] ? : ? 1955 (Age: 52) ??F [...] [facility] 12/26/2007 12/27/2007 11: 58 EDT us Humble Lauren DO PATHOLOGY ORDERABLES Fi nal Result [facility] [address] [place] [address] documented in this encounter Visit Diagnoses Not on filedocumented in this encounter
--- OUTSIDE RECORDS SUMMARY | 2024-09-13 15:05 | XMS_ITS | Encounter Summary ---
Author Organization [facility] Address [address] [place] [address] Care Team Providers Care Mine Safety Engineer Name Role Phone Unavailable Primary Care Provider Unavailabl e Encounter Details Date Type Department Care Team (Late st Contact Info) Description 01/05/2011 Results Only [facility] Laboratory Services - [facility] ([facility] [address] [place] [address] Ashley Drake FNP [address] [place], [place] [phone] Social History Tobacco Use Types Packs/Day Years [...] ? VICKI TRAORE ? Accession #: ? [id number] ? : ? 1955 (Age: 55) ??F [...] of Report ? [facility] 01/05/2011 01/07/2011 us Ashley Drake WATER POLLUTION CONTROL INSPECTOR PATHOLOGY ORDERABLES Final Resul t [facility] [address] [place] [address] documented in this encounter Visit Diagnoses Not on filedocumented in this encounter
--- OUTSIDE RECORDS SUMMARY | 2024-09-13 15:05 | XMS_ITS | Encounter Summary ---
Author Organization [facility] Address [address] [place] [address] Care Team Providers Care Senior Technologist Name Role Phone Unavailable Primary Care Provider Unavailabl e Encounter Details Date Type Department Care Team (Late st Contact Info) Description 10/26/2004 Results Only [facility] - [place] conversion [address] [place] [address] Rubio Richards, PARKING MANAGER [address] [place] [phone] Social History Tobacco Use Types Packs/Day Years [...] ? VICKI TRAORE ? Accession #: ? [id number] : ? 1955 (Age: 48) ??F ?Collect Date: ? 10/26/2004 Location: ? [facility] ? Receive Date: ? 10/28/2004 Provider: ?RUBIO RICHARDS PARKING MANAGER Copy to: ? Specimen/Source: ?ThinPrep Pap [...] End of Report [facility] 10/26/2004 10/28/2004 us Rubio Richards NP PATHOLOGY ORDERABLES Final Resu lt [facility] [address] [place] [address] documented in this encounter Visit Diagnoses Not on filedocumented in this encounter
--- OUTSIDE RECORDS SUMMARY | 2024-09-13 15:05 | XMS_ITS | Referral Summary ---
Author Organization [facility] Address [address] [place] [address] Care Team Providers Care Home Care Liaison Name Role Phone Edu Tee MD Primary Care Provider [phone] Social History Tobacco Use Types Packs/Day Years Used Date Smoking Tobacco: Never Assessed Comments Unknown Sex and Gender Information Value Date Recorded Sex Assigned at Not on file Legal Sex Female 18:28 EST Gender Identity Not on file Sexual Orientation Not on file Plan of Treatment Not on file Insurance MEDICARE AET Care Teams Home Care Liaison Relationship Specialty Start Date End Date Edu Tee MD [address] [place] [address] PCP - General 08/08/15
--- OUTSIDE RECORDS SUMMARY | 2024-09-13 15:05 | XMS_ITS | Encounter Summary ---
Author Organization [facility] Address [address] [place] [address] Care Team Providers Care Wait Staff Name Role Phone Unavailable Primary Care Provider Unavailabl e Encounter Details Date Type Department Care Team (Late st Contact Info) Description 12/08/2006 Results Only [facility] - Maple conversion [address] [place] [address] Ashley Drake FNP [address] [place], [place] [phone] Social History Tobacco Use Types Packs/Day Years [...] ? VICKI TRAORE ? Accession #: ? [id number] : ? 1955 (Age: 51) ??F ?Collect Date: ? 12/08/2006 Location: ? [facility] ? Receive Date: ? 12/12/2006 Provider: ?ASHLEY DRAKE AVP Copy to: ? Specimen/Source: ?ThinPrep Pap Test, Cervix/Endocervix, processed on CO Everywhere ThinPrep Imaging System, with manual evaluation Last [...] End of Report [facility] 12/08/2006 12/12/2006 us Ashley POLLACKP PATHOLOGY ORDERABLES Final Resul t [facility] [address] [place] [address] documented in this encounter Visit Diagnoses Not on filedocumented in this encounter
--- OUTSIDE RECORDS SUMMARY | 2024-09-13 15:05 | XMS_ITS | Encounter Summary ---
Author Organization [facility] Address [address] [place] [address] Care Team Providers Care Beauty Culturist Apprentice Name Role Phone Unavailable Primary Care Provider Unavailabl e Encounter Details Date Type Department Care Team (Late st Contact Info) Description 11/20/2001 Results Only [facility] - Maple conversion [address] [place] [address] Ashley Drake FNP [address] [place], [place] [phone] Social History Tobacco Use Types Packs/Day Years [...] reviewed and electronically signed by: ? COOKIE White(ASCP) ? Report Date: ??11/28/2001 14:05 End of Report [facility] 11/20/2001 11/24/2001 us Ashley POLLACKP PATHOLOGY ORDERABLES Final Resul t [facility] [address] [place] [address] documented in this encounter Visit Diagnoses Not on filedocumented in this encounter
--- OUTSIDE RECORDS SUMMARY | 2024-09-13 15:05 | XMS_ITS | Encounter Summary ---
Author Organization [facility] Address [address] [place] [address] Care Team Providers Care Construction Tech Name Role Phone Unavailable Primary Care Provider Unavailabl e Encounter Details Date Type Department Care Team (Late st Contact Info) Description 01/21/2015 Results Only [facility]- [facility] [phone] Ashley Drake FNP [address] [place], [place] [phone] Social History Tobacco Use Types Packs/Day Years [...] ? VICKI TRAORE ? Accession #: ? [id number] : ? 1955 (Age: 59) ??F ?Collect Date: ? 01/21/2015 Location: ? [facility] ? Receive Date: ? 01/23/2015 Provider: ?ASHLEY DRAKE BROADCAST SYSTEMS ENGINEER Copy to: ? Specimen/Source: ?Pap Test, Cervix/Endocervix, [...] Report Date: ??01/29/2015 13:29 End of Report [facility] 01/21/2015 01/23/2015 us Ashley POLLACKP PATHOLOGY ORDERABLES Final Resul t [facility] [address] [place] [address] documented in this encounter Visit Diagnoses Not on filedocumented in this encounter
[2024-09-13 21:52] LABS: HCT 40.6 % (36.0-46.0); HGB 13.7 g/dL (11.2-15.7); MCH 31.1 pg (27.0-33.0); MCHC 33.7 % (32.0-36.0); MCV 92 fL (80-95); Platelet Count 207 10^3/uL (130-400); RBC 4.41 10^6/uL (3.93-5.22); RDW 12.6 % (11.7-14.6); RDW-SD 42.6 fL; WBC 6.02 10^3/uL (4.4-10.8)
[2024-09-13 22:00] LABS: Iron 59 ug/dL (50-170); Total Iron Binding Capacity 299 ug/dL (250-450); Transferrin Sat 20 % (15-50)
== END 2024-09-13 15:04 | disposition home or self-care (01) ==
LOC: NCHCN 15:03
PROVIDERS: PCP Nurse Practitioner Family; Visit Provider Nurse Practitioner Family
DX: E61.1 Iron deficiency (principal)
CPT/HCPCS: 85027; 83540; 83550

== ENCOUNTER 2024-12-20 22:26 | Outpatient (REF) | payer MEDICARE, SELFPAY ==
[2024-12-20 15:26] LABS: HCT 40.8 % (36.0-46.0); HGB 13.7 g/dL (11.2-15.7); MCH 30.9 pg (27.0-33.0); MCHC 33.6 % (32.0-36.0); MCV 92 fL (80-95); MPV 10.9 fL (8.0-11.0); Platelet Count 205 10^3/uL (130-400); RBC 4.43 10^6/uL (3.93-5.22); RDW 11.9 % (11.7-14.6); RDW-SD 40.3 fL; WBC 4.72 10^3/uL (4.4-10.8)
[2024-12-20 16:07] LABS: Iron 73 ug/dL (50-170); Total Iron Binding Capacity 267 ug/dL (250-450); Transferrin Sat 27 % (15-50)
[2024-12-20 16:12] LABS: Ferritin 149 ng/mL (8-252)
== END 2024-12-20 22:27 | disposition home or self-care (01) ==
LOC: NCHCN 22:26
PROVIDERS: PCP Nurse Practitioner Family; Visit Provider Nurse Practitioner Family
DX: D64.9 Anemia, unspecified (principal)
CPT/HCPCS: 85027; 82728; 83540; 83550

== ENCOUNTER 2025-01-11 00:11 | Outpatient (CLI) | payer MEDICARE, SELFPAY ==
--- NOTE | 2025-01-11 08:55 | DI.MAMMO_ITS ---
Exam(s) MAMMO SCREENING EXAM: MAMMO SCREENING CLINICAL HISTORY: Z12.39 Screening TECHNIQUE: Mammograms were interpreted according to the usual protocol including computer analysis w [employer] CAD system, tomosynthesis and C-view imaging. COMPARISON: 2014 through 2021 FINDINGS: The breasts are composed of mainly fatty density , Breast Density category A. No suspicious masses or suspicious microcalcifications are seen. No skin thickening or abnormal axillary lymph nodes are seen. There has been no significant change from prior exams. IMPRESSION: BI-RADS Category 1, Negative mammogram Yearly screening mammography is recommended. Breast Density - Category A, fatty density. A negative radiographic report should not delay biopsy if a dominant or clinically suspicious mass is present. Up to ten percent of cancers are not identified on mammography. A negative report may reinforce clinical impression. Adenosis and dense breasts may obscure an underlying neoplasm. False positive reports average 6 to 10%. Patient will receive a letter notifying them of these results.
== END 2025-01-11 00:31 ==
PROVIDERS: PCP Nurse Practitioner Family; Visit Provider Nurse Practitioner Family
DX: Z12.31 Encounter for screening mammogram for malignant neoplasm of breast (principal); R92.313 Mammographic fatty tissue density, bilateral breasts
CPT/HCPCS: 77063; 77067

== ENCOUNTER → 2025-02-21 09:18 | Outpatient (BNVA) | payer MEDICARE, SELFPAY | PROVIDERS: PCP Nurse Practitioner Family; Visit Provider Nurse Practitioner Adult Health | DX: G30.9 Alzheimer's disease, unspecified (principal); F02.80 Dementia in other diseases classified elsewhere, unspecified severity, without behavioral disturbance, psychotic disturbance, mood disturbance, and anxiety | CPT/HCPCS: 99214 ==

== ENCOUNTER 2025-03-28 17:35 | Outpatient (REF) | payer MEDICARE, SELFPAY ==
[2025-03-28 17:07] LABS: Iron 61 ug/dL (50-170); Total Iron Binding Capacity 285 ug/dL (250-450); Transferrin Sat 21 % (15-50)
[2025-03-28 17:19] LABS: ALT 36 U/L (14-59); AST 22 U/L (15-37); Albumin 4.3 g/dL (3.4-5.0); Alkaline Phosphatase 73 U/L (46-116); BUN 19 mg/dL (7-18); Bilirubin, Total 0.6 mg/dL (0.2-1.0); CREATININE 0.6 mg/dL (0.55-1.02); Calcium 9.7 mg/dL (8.5-10.1); Calculated LDL 93 mg/dL (<100); Chloride 105 mmol/L (98-107); Cholesterol 156 mg/dL (<200); Ferritin 147 ng/mL (8-252); Glucose 88 mg/dL (74-106); HDL Cholesterol 55 mg/dL (>or=50); Sodium 142 mmol/L (136-145); TSH (W/Ref FT4) 2.44 uIU/mL (0.36-3.74); Total Protein 6.9 g/dL (6.4-8.2); Triglyceride 41 mg/dL (<150)
[2025-03-29 03:52] LABS: HCT 40.3 % (36.0-46.0); HGB 13.7 g/dL (11.2-15.7); MCH 31.9 pg (27.0-33.0); MCV 94 fL (80-95); Platelet Count 205 10^3/uL (130-400); RDW 11.9 % (11.7-14.6); RDW-SD 41.1 fL; WBC 5.32 10^3/uL (4.4-10.8)
== END 2025-03-28 17:36 | disposition home or self-care (01) ==
LOC: NCHCN 17:35
PROVIDERS: PCP Nurse Practitioner Family; Visit Provider Nurse Practitioner Family
DX: E03.9 Hypothyroidism, unspecified (principal); D64.9 Anemia, unspecified
CPT/HCPCS: 80053; 80061; 85027; 82728; 83540; 83550; 84443

== ENCOUNTER → 2025-05-27 09:41 | Outpatient (BNVA) | payer MEDICARE, SELFPAY | PROVIDERS: PCP Nurse Practitioner Family; Referring Provider Nurse Practitioner Family; Visit Provider Nurse Practitioner Adult Health | DX: G30.9 Alzheimer's disease, unspecified (principal); F02.80 Dementia in other diseases classified elsewhere, unspecified severity, without behavioral disturbance, psychotic disturbance, mood disturbance, and anxiety | CPT/HCPCS: 99215 ==

== ENCOUNTER 2025-09-22 06:08 | Emergency (ER) | payer MEDICARE, SELFPAY ==
[2025-09-22 06:10] VITALS: BP 156/76; PULSE 56; TEMP 37.2; O2SAT 93
--- NOTE | 2025-09-22 06:15 | DI.CT_ITS ---
Exam(s) CT HEAD CERVICAL SPINE WO EXAM: CT HEAD CERVICAL SPINE WO CLINICAL HISTORY: fall, severe dementia, Left hip pain. TECHNIQUE: Imaging Protocol: Axial computed tomography images with coronal and sagittal reformatted images were created and reviewed COMPARISON: CT CT HEAD WO from 02/01/[address] BRAIN NECK CTA from 02/01/2024 FINDINGS: The examination is limited due to patient motion artifact. CT Head: Ventricles and Extra axial spaces: Normal in size and morphology for the patient's age. Hemorrhage: None. Cerebral parenchyma: There are areas of decreased attenuation in the white matter consistent with chronic microvascular ischemic disease. There is no evidence of an acute territorial infarct or mass effect. Midline shift: None. Brainstem/Cerebellum: Normal. Calvarium: Normal. Visualized Paranasal sinuses/Mastoids: There is mild mucosal thickening seen in the visualized paranasal sinuses. Soft Tissues: Unremarkable. CT Cervical Spine: Bones: No acute fracture or subluxation. Age-appropriate degenerative changes are present. Soft Tissues: Unremarkable. IMPRESSION: 1. No acute intracranial process. 2. No acute fracture or subluxation in the cervical spine. 3. The preliminary [facility] report was reviewed. RADIATION DOSE DELIVERED: 1,171.66mGy.cm Total DLP DATA REPOSITORY: All CT scans at this facility are submitted to the National Radiology Data Registry (NRDR) Dose Index Registry (DIR) with the [employer] (ACR). RADIATION OPTIMIZATION: All CT scans at this facility use at least one of these dose optimization techniques: automated exposure control; mA and/or kV adjustment per patient size (includes targeted exams where dose is matched to clinical indication); or iterative reconstruction.
--- NOTE | 2025-09-22 06:15 | RT.EKG_ITS ---
APPROVED REPORT Exam: Resting ECG Reason for Exam: fall Patient Location: E HR:57 bpm ECG Measurements Heart Rate 57 AXIS OH 144 P 22 QRSd 83 QRS 41 QT 431 T 35 QTc 419 Conclusion Sinus bradycardia...rate< 60 Consider left ventricular hypertrophy...(S V1+R V5/V6) >3.25mV Physician: No STEMI
--- NOTE | 2025-09-22 06:15 | DI.CT_ITS ---
Exam(s) CT CHEST/ABD/PEL W CT THORACIC LUMBAR SPINE REC EXAM: CT CHEST/ABD/PEL W and CT thoracic and lumbar spine recons CLINICAL HISTORY: fall, severe dementia, Left hip pain TECHNIQUE: Imaging Protocol: Axial computed tomography images with coronal and sagittal reformatted images were created and reviewed. Lung Computer Aided Detection (CAD) was utilized. CONTRAST MATERIAL: Intravenous: Omnipaque 350 contrast volume:75 mL Oral: No COMPARISON: CR XR DEXA BONE DENSITY W/WO MATT from 06/14/[address] BRAIN NECK CTA from 02/01/[address] THORACIC LUMBAR SPINE REC from 09/22/2025 FINDINGS: CHEST: Tracheobronchial tree: Patent where visualized. No evidence of bronchiectasis. Pulmonary parenchyma: No consolidation or dominant measurable mass. There is atelectasis in the lung bases. Visualized thyroid gland: Unremarkable. Mediastinum and Yary: No dominant adenopathy or fluid collection. The esophagus is unremarkable. There is a small hiatal hernia. Pleura: No effusion or pneumothorax. Heart: The heart is enlarged. No coronary artery calcifications are seen. No pericardial effusion. Pulmonary arteries: No pulmonary emboli are identified. Aorta: Thoracic aorta non-dilated. There is no evidence of dissection. Atherosclerotic calcification is present. Lymph nodes: Within normal limits. Soft tissues: Unremarkable. Bones:Within normal limits for the patient's age. CT thoracic spine recons: Age-appropriate degenerative changes are seen in the thoracic spine. There is unchanged compression deformity of T11. There are no acute fractures or subluxations in the thoracic spine. CT lumbar spine recons: Age-appropriate degenerative changes are seen in the lumbar spine. No acute fracture or subluxation is present. There is L5 spondylolysis and grade 1 spondylolisthesis of L5 on S1. ABDOMEN: Liver: Normal density. No measurable mass. Portal, Superior Mesenteric, and Splenic Veins: Unremarkable. Gallbladder and Biliary Tract: No radiodense calculus or dilation. Pancreas: Normal density, no abnormal calcifications or inflammatory process. Spleen: Normal. Adrenals: No masses seen. Kidneys: Normal size, contour and axis. There is prominent distension of the renal pelves bilaterally, right greater than left. There is normal caliber ureter bilaterally. No masses seen. Abdominal Aorta: Abdominal portion non-dilated. Atherosclerotic calcification is present. Bowel: No obstruction or bowel wall thickening. There is no evidence of an appendicitis. There is a moderate amount of stool throughout the colon which may represent constipation. Peritoneal Cavity: No ascites, collection or mesenteric inflammatory response. No free air. Lymph Nodes: Within normal limits. Bones: Within normal limits for the patient's age. Soft Tissues: There is a small fat containing umbilical hernia. PELVIS: Bladder: The urinary bladder is markedly distended and may require catheterization. Reproductive Organs: Unremarkable as visualized. Lymph Nodes: Within normal limits. Bones: Within normal limits. IMPRESSION: 1. There is no acute pulmonary process. 2. There is no acute fracture or subluxation in the thoracic or lumbar spine. 3. There is no acute abdominal or pelvic process. 4. The preliminary [facility] report was reviewed. RADIATION DOSE DELIVERED: 485.4mGy.cm Total DLP DATA REPOSITORY: All CT scans at this facility are submitted to the National Radiology Data Registry (NRDR) Dose Index Registry (DIR) with the [employer] (ACR). RADIATION OPTIMIZATION: All CT scans at this facility use at least one of these dose optimization techniques: automated exposure control; mA and/or kV adjustment per patient size (includes targeted exams where dose is matched to clinical indication); or iterative reconstruction.
[2025-09-22] MEDS: ACETAMINOPHEN 1,000 MG/100 ML BAG 400 MG IVPB (06:27)
[2025-09-22 06:28] LABS: BE (Venous) 6 mmol/L (-2-3); HCO3 (Venous) 30 mmol/L (23-28); O2 Sat (Venous) 38 %; TCO2 (Venous) 28 mmol/L (24-29); pCO2 (Venous) 48 mmHg (41-51); pO2 (Venous) 23 mmHg
[2025-09-22] MEDS: Normal Saline 500 ML IV (06:28)
--- NOTE | 2025-09-22 06:31 | W.ED.GENAD ---
Discharge Plan Discharge Details Chief Complaint: Fall/Non TraumaCriteria Clinical Impression: Left hip pain, Fall Primary Care Provider: Kaylyn Salas ED Provider: Leno Kothari Home Meds and New Rx's Prescriptions: No Action ferrous sulfate 27 mg iron tablet 27 mg PO DAILY memantine 10 mg tablet 10 mg PO BID Qty: 180 3RF multivitamin [Daily Multi-Vitamin] 1 EACH tablet 1 ea PO DAILY cholecalciferol (vitamin D3) 1,000 UNIT tablet 1,000 unit PO DAILY atorvastatin 20 mg tablet 20 mg PO DAILY quetiapine 25 mg tablet 12.5 mg PO DAILY Patient Comments: take in AM quetiapine 25 mg tablet See Rx Instructions PO QHS Rx Instructions: 25 mg orally every day at bedtime; lorazepam [Ativan] 0.5 mg tablet 0.5 mg PO DAILY PRN HPI General Date/Time Provider Initiated Documentation: 09/22/25 06:14. HPI Narrative: 69-year-old female with a past medical history of severe Alzheimer's dementia and cognitive impairment, who is a full code, as well as high cholesterol, who presents today for fall. She resides at [facility]. She was found on the ground this evening, uncertain the downtime. She is complaining of pain in her left hip, EMS was called and the patient was brought to the ER. Patient does not verbalize any complaint in particular. Her answers are in congruent with the current situation. Family member is at bedside, and states that the patient's mental status appears to be slightly declined compared to normal, and that she has noticed a more progressive decline over the last week. Patient is not on any anticoagulants. Related Data Home Medications ?Medication ?Instructions ?Recorded ?Confirmed Daily Multi-Vitamin (multivitamin) 1 ea PO DAILY 03/16/13 09/22/25 Held on 09/22/25. Instructions: Pt Stopped/Never Started cholecalciferol (vitamin D3) 25 1,000 unit PO DAILY 03/16/13 09/22/25 mcg (1,000 unit) tablet atorvastatin 20 mg tablet 20 mg PO DAILY 05/02/24 09/22/25 Held on 09/22/25. Instructions: Pt Stopped/Never Started ferrous sulfate 27 mg iron tablet 27 mg PO DAILY 06/21/24 09/22/25 Held on 09/22/25. Instructions: Pt Stopped/Never Started memantine 10 mg tablet 10 mg PO BID #180 tabs 08/23/24 09/22/25 lorazepam 0.5 mg tablet (Ativan) 0.5 mg PO DAILY PRN 09/22/25 09/22/25 quetiapine 25 mg tablet 12.5 mg PO DAILY 09/22/25 09/22/25 quetiapine 25 mg tablet See Rx Instructions PO QHS 09/22/25 09/22/25 Previous Rx's ?Medication ?Instructions ?Recorded memantine 10 mg tablet 10 mg PO BID #180 tabs 08/23/24 Allergies Allergy/AdvReac Type Severity Reaction Status Date / Time codeine Allergy Unknown Other (See Verified 05/27/25 09:43 Comment) General Stated Complaint: Fall/Non TraumaCriteria IVON: 3 Exam Narrative Exam Narrative: 1.Const: Well-nourished, Well-developed, appearing stated age 2.Eyes: PERRL, no conjunctival injection, and symmetrical lids. 3.ENT: Atraumatic external nose and ears. Moist MM. Neck: Symmetric, trachea midline, No thyromegaly. 4.CVS: +S1/S2, Peripheral pulses 2+ and equal in all extremities. Brisk capillary refill in all extremities. 5.RESP: Unlabored respiratory effort. Clear to auscultation bilaterally. No wheezes rales or rhonchi 6.GI: Soft, Nontender/Nondistended, No hepatosplenomegaly. No guarding or rebound. 7.MSK: Normocephalic/Atraumatic, mild tenderness on palpation of the left hip, no shortening no. There does not appear to be significant pain with logroll of the left hip. No pain on the right. Pelvis is stable. 8.Skin: Warm, Dry. No rashes or lesions. 9.Neuro: early breastfeeding care specialist II-XII grossly intact. Patient moves all extremities 10.Psych: (AAO) x0. Appropriate mood and affect Course Vital Signs Vital signs: Vital Signs Temperature 37.2 C 09/22/25 06:10 Pulse 56 L 09/22/25 06:10 Blood Pressure 156/76 H 09/22/25 06:10 Pulse Oximetry 93 09/22/25 06:10 Temperature 37.2 C 09/22/25 06:10 Temperature Source Temporal Artery Scan 09/22/25 06:10 Pulse 56 L 09/22/25 06:10 Blood Pressure 156/76 H 09/22/25 06:10 Blood Pressure Position Supine 09/22/25 06:10 Pulse Oximetry 93 09/22/25 06:10 Oxygen Delivery Method Room Air 09/22/25 06:10 Oxygen Flow Rate 0 09/22/25 06:10 Lab/Test Results Lab/Test Results: Laboratory Tests Range/Units 09/22/25 06:20 VBG pH (7.31-7.41) 7.41 VBG pCO2 (41-51) mmHg 48 VBG pO2 mmHg 23 VBG HCO3 (23-28) mmol/L 30 H VBG Total CO2 (24-29) mmol/L 28 VBG O2 Saturation % 38 VBG Base Excess (-2-3) mmol/L 6 H Medical Decision Making 69-year-old female with a past medical history of severe Alzheimer's dementia and cognitive impairment, who is a full code, as well as high cholesterol, who presents today for fall. She resides at [facility]. She was found on the ground this evening, uncertain the downtime. She is complaining of pain in her left hip, EMS was called and the patient was brought to the ER. Patient does not verbalize any complaint in particular. Her answers are in congruent with the current situation. Family member is at bedside, and states that the patient's mental status appears to be slightly declined compared to normal, and that she has noticed a more progressive decline over the last week. Patient is not on any anticoagulants. Exam demonstrates relatively benign appearing and comfortable female, she does have tenderness on palpation of the left hip, but no focal tenderness or signs of significant trauma anywhere else. Will get CT imaging of the head chest abdomen and pelvis for further assessment. Will check electrolytes, check a UA with the increasing confusion and altered mental status, will monitor closely and reassess. Patient will be signed out to my colleague for follow-up on labs and imaging. PFSH All Active Problems (Updated 09/22/25 @ 06:34 by Leno Kothari DO) Fall (Acute) Left hip pain (Acute) Agitation (Acute) Impaired instrumental activities of daily living (Acute) ACP (advance care planning) (Acute) Alzheimer's dementia (Acute) Cognitive impairment (Acute) Medical History Palliative care patient Pain of right hip joint Disorder of skin Hx of colonic polyp Overflow incontinence of urine Palpitations Altered mental status Osteopenia Idiopathic osteoarthritis Bradycardia Essential hypertension Hyperlipidemia Hypothyroidism HTN (hypertension) Surgical History H/O tubal ligation History of tonsillectomy Colonoscopy - MAC (03/10/18) Family History Mother , OVARIAN CANCER No problems noted. Father , CVA No problems noted. Brother Parkinsons disease Dementia Hypertension Brother Hypertension Heart transplanted Social History Smoking/Tobacco Use Status: Never Smoking risk assessment performed?: Yes Alcohol Intake: former Details: QUIT DRINKING 2 MONTHS AGO Drug use: Never Substance use type: does not use Housing: detention Do you feel safe at home: Yes Do you feel safe in your relationship?: Yes
[2025-09-22 06:33] LABS: Abs Immature Grans 0.01 10^3/uL (0.0-0.06); HCT 37.6 % (36.0-46.0); HGB 12.8 g/dL (11.2-15.7); Immature Grans % 0.1 %; MCH 31.1 pg (27.0-33.0); MCHC 34.0 % (32.0-36.0); MCV 92 fL (80-95); MPV 9.8 fL (8.0-11.0); Platelet Count 146 10^3/uL (130-400); RBC 4.11 10^6/uL (3.93-5.22); RDW 11.9 % (11.7-14.6); RDW-SD 40.3 fL; WBC 6.67 10^3/uL (4.4-10.8)
[2025-09-22 06:57] LABS: ALT 27 U/L (10-49); AST 50 U/L (<34); Albumin 3.9 g/dL (3.2-5.0); Alkaline Phosphatase 63 U/L (46-116); Anion Gap 9.2 mmol/L (3-11); BUN 12 mg/dL (9-23); Bilirubin, Total 0.6 mg/dL (0.2-1.2); CO2 29.8 mmol/L (20.0-31.0); Calcium 8.4 mg/dL (8.3-10.6); Chloride 106 mmol/L (98-107); Glucose 90 mg/dL (74-106); Potassium 3.3 mmol/L (3.5-5.1); Sodium 145 mmol/L (136-145); Total Protein 6.3 g/dL (5.7-8.2)
[2025-09-22 06:58] LABS: Creatine Kinase 796 U/L (34-145)
[2025-09-22 07:11] LABS: Troponin I 40 ng/L (<35)
--- NOTE | 2025-09-22 07:54 | W.EDPROG ---
Date of service: 09/22/25 Time of Service: 07:54 Medical Decision Making I received signout on this 69-year-old female with advanced Alzheimer's dementia in the emergency department send left hip pain after being found down.Comprehensive metabolic panel showing very mild hypokalemia. No acute LFT abnormality. No GILDA normal renal function. CBC lacks anemia thrombocytopenia leukocytosis. Venous blood gas with no acidemia nor hypercarbia. Mildly elevated CK level less than 6 times upper limit of normal and not consistent with rhabdomyolysis. Troponin elevated at 40 ng/L. Will reassess following imaging. 8:11 AM Repeat reassuring troponin with reassuring delta. 9:34 AM Urinalysis showing trace blood. Nitrite leuk esterase negative. CT head with no acute abnormalities. No acute abnormalities on CT cervical spine. CT chest without acute findings. Patient has known CT abdomen pelvis hiatal hernia but no acute changes. She has a fatty liver. Her T and L spine recons show no acute fractures. 11:20 AM Patient reportedly has had markedly decreased like to ambulate at [facility]. Patient's niece reports that she cannot go back there. 11:45 AM Physical therapy evaluated patient. They noted the patient had no safety awareness. Care management was involved as care variant was reportedly refusing to take the patient back. 1:34 PM Care management met with the patient's niece. Patient's niece was going to help support the patient at the [facility] where patient will be discharged. Patient is breathing in no acute distress. Respiratory rates of approximately 20 breaths/min. Will have nurses document respiratory rate. Discharge Plan Disposition Patient Disposition: Home Discharge Details Clinical Impression: Left hip pain, Fall, Hx of falling Primary Care Provider: Kaylyn Salas ED Provider: To Turcios Home Meds and New Rx's Prescriptions: Continued ferrous sulfate 27 mg iron tablet 27 mg PO DAILY memantine 10 mg tablet 10 mg PO BID Qty: 180 3RF multivitamin [Daily Multi-Vitamin] 1 EACH tablet 1 ea PO DAILY cholecalciferol (vitamin D3) 1,000 UNIT tablet 1,000 unit PO DAILY atorvastatin 20 mg tablet 20 mg PO DAILY quetiapine 25 mg tablet 12.5 mg PO DAILY Patient Comments: take in AM quetiapine 25 mg tablet See Rx Instructions PO QHS Rx Instructions: 25 mg orally every day at bedtime; lorazepam [Ativan] 0.5 mg tablet 0.5 mg PO DAILY PRN Discharge Instructions Additional Instructions: You are seen in the emergency department for fall and hip pain. You are CAT scan showed no sign of any hip fractures nor any bleeding in the head. As we discussed if you take any falls have any increasing weakness or fevers please return to the emergency department. Otherwise please follow-up with your primary care provider. Stand Alone Forms: Portal Information
[2025-09-22 08:08] LABS: Troponin I 39 ng/L (<35)
[2025-09-22] MEDS: Normal Saline - Diluent 50 ML VIAL IJ (08:41)
[2025-09-22] MEDS: Omnipaque 350 MG/ML 100 ML BTL IJ (08:41)
[2025-09-22] MEDS: Normal Saline Flush 10 ML SYR IVP (08:42)
--- NOTE | 2025-09-22 08:52 | DI.VRAD_ITS ---
PROCEDURE INFORMATION: Exam: CT Head Without Contrast Exam date and time: 09/22/2025 8:22 AM Age: 69 years old Clinical indication: Injury or trauma; Other: Fall, severe dementia, left hip pain; Blunt trauma (contusions or hematomas); Additional info: Patient unable to answer questions/ no verbal TECHNIQUE: Imaging protocol: Computed tomography of the head without contrast. COMPARISON: MR BRAIN WO 05/24/2024 11:51 AM FINDINGS: Brain: Normal. No hemorrhage. Unremarkable white matter. No mass effect. Cerebral ventricles: No ventriculomegaly. Paranasal sinuses: Minimal bilateral ethmoid sinus disease. Mastoid air cells: Visualized mastoid air cells are well aerated. Bones: Unremarkable. No acute fracture. Soft tissues: Unremarkable. IMPRESSION: No acute intracranial abnormality. PROCEDURE INFORMATION: Exam: CT Cervical Spine Without Contrast Exam date and time: 09/22/2025 8:22 AM Age: 69 years old Clinical indication: Injury or trauma; Other: Fall, severe dementia, left hip pain; Blunt trauma (contusions or hematomas); Additional info: Patient unable to answer questions/ no verbal TECHNIQUE: Imaging protocol: Computed tomography of the cervical spine without contrast. COMPARISON: CT BRAIN NECK CTA 02/01/2024 10:49 AM FINDINGS: Bones: Normal alignment of the cervical vertebral bodies and discs. Osteoarthritic changes identified at multiple levels without spondylolysis or spondylolisthesis. No central spinal stenosis or cord compression. Neural foraminal narrowing identified at several levels secondary to uncovertebral joint and facet joint arthropathy. Spinal cord: Central spur identified at C3-C4 slightly impressing upon the underlying thecal sac and spinal cord. Lungs: Lung apices are normal. Soft tissues: Unremarkable. IMPRESSION: 1. No acute fracture. 2. Osteoarthritic changes as detailed above with a central posterior spur C3-C4. 3. No central spinal stenosis or cord compression. Dictated and Authenticated by: Ebenezer Simpson MD. Orderin Saniya Burr MD
--- NOTE | 2025-09-22 09:17 | DI.VRAD_ITS ---
PROCEDURE INFORMATION: Exam: CT Chest With Contrast; Diagnostic Exam date and time: 09/22/2025 8:46 AM Age: 69 years old Clinical indication: Injury or trauma; Other: Fall, severe dementia, left hip pain; Generalized; Blunt trauma (contusions or hematomas); Additional info: Patient unable to answer questions/ no verbal TECHNIQUE: Imaging protocol: Diagnostic computed tomography of the chest with contrast. Contrast material: OMNIPAQUE 350; Contrast volume: 75 ml; Contrast route: INTRAVENOUS (IV); COMPARISON: CT HEAD CERVICAL SPINE WO 09/22/2025 8:22 AM FINDINGS: Lungs: Left lower lobe subsegmental atelectatic changes. Pleural spaces: Unremarkable. No pneumothorax. No pleural effusion. Heart: Unremarkable. No cardiomegaly. No pericardial effusion. Lymph nodes: Unremarkable. No enlarged lymph nodes. Vasculature: Unremarkable. No aortic aneurysm. Bones/joints: Unremarkable. No acute fracture. Soft tissues: Unremarkable. IMPRESSION: No acute findings. PROCEDURE INFORMATION: Exam: CT Abdomen And Pelvis With Contrast Exam date and time: 09/22/2025 8:46 AM Age: 69 years old Clinical indication: Injury or trauma; Other: Fall, severe dementia, left hip pain; Generalized; Blunt trauma (contusions or hematomas); Additional info: Patient unable to answer questions/ no verbal TECHNIQUE: Imaging protocol: Computed tomography of the abdomen and pelvis with contrast. Contrast material: OMNIPAQUE 350; Contrast volume: 75 ml; Contrast route: INTRAVENOUS (IV); COMPARISON: CT THORACIC LUMBAR SPINE REC 09/22/2025 8:46 AM FINDINGS: Diaphragm: Hiatal hernia. Liver: Fatty infiltration of the liver. Gallbladder and biliary ducts: Normal. No calcified stones. No ductal dilation. Pancreas: Normal. No ductal dilation. Spleen: Normal. No splenomegaly. Adrenal glands: Normal. No mass. Kidneys and ureters: Bilateral extrarenal pelves [id number]. Stomach and bowel: See Bones/joints finding. Appendix: No evidence of appendicitis. Intraperitoneal space: Unremarkable. No free air. No significant fluid collection. Vasculature: Unremarkable. No abdominal aortic aneurysm. Lymph nodes: Unremarkable. No enlarged lymph nodes. Urinary bladder: Unremarkable as visualized. Reproductive: Unremarkable as visualized. Bones/joints: Bilateral spondylolysis at L5-S1 resulting in a mild anterolisthesis of L5 in relation to S1. Constipation. Soft tissues: Unremarkable. IMPRESSION: 1. Hiatal hernia. 2. Fatty infiltration of the liver. 3. Constipation. 4. No posttraumatic changes identified. Dictated and Authenticated by: Ebenezer Simpson MD. Orderin Saniya Burr MD
--- NOTE | 2025-09-22 09:24 | DI.VRAD_ITS ---
PROCEDURE INFORMATION: Exam: CT Thoracic Spine Without Contrast Exam date and time: 09/22/2025 8:46 AM Age: 69 years old Clinical indication: Injury or trauma; Other: Fall, severe dementia, left hip pain; Blunt trauma (contusions or hematomas); Additional info: Patient unable to answer questions/ no verbal TECHNIQUE: Imaging protocol: Computed tomography of the thoracic spine without contrast. COMPARISON: CT HEAD CERVICAL SPINE WO 09/22/2025 8:22 AM FINDINGS: Bones/joints: Compression deformity of the T11 vertebral body which is old. No acute fracture. No central spinal stenosis or cord compression. Soft tissues: Unremarkable. IMPRESSION: 1. No acute fracture. 2. Old compression deformity of T11 vertebral body. 3. No central spinal stenosis or cord compression. PROCEDURE INFORMATION: Exam: CT Lumbar Spine Without Contrast Exam date and time: 09/22/2025 8:46 AM Age: 69 years old Clinical indication: Injury or trauma; Other: Fall, severe dementia, left hip pain; Blunt trauma (contusions or hematomas); Additional info: Patient unable to answer questions/ no verbal TECHNIQUE: Imaging protocol: Computed tomography of the lumbar spine without contrast. COMPARISON: CT CHEST/ABD/PEL W 09/22/2025 8:46 AM FINDINGS: Bones/joints: Normal alignment of the lumbar vertebral bodies and discs. Bilateral spondylolysis at L5-S1 resulting in a mild anterolisthesis of L5 in relation to S1. Osteoarthritic changes identified most pronounced at L4-L5. No acute fracture. Neural foraminal narrowing identified at L5-S1 secondary to the bilateral spondylolysis described above. No central spinal stenosis noted. Mild diffuse disc bulge identified at L3-L4 and L4-L5. Soft tissues: Unremarkable. IMPRESSION: 1. No acute fracture. 2. Bilateral spondylolysis at L5-S1 resulting in a mild anterolisthesis of L5 in relation to S1. 3. Mild diffuse disc bulges at L3-L4 and L4-L5. 4. No central spinal stenosis. Dictated and Authenticated by: Ebenezer Simpson MD. Orderin Tam Ariza MD
[2025-09-22 09:25] VITALS: BP 145/59; PULSE 45; PULSE 46; RESP 18; TEMP 36.5; O2SAT 98; O2SAT 99
[2025-09-22 09:29] LABS: Glucose Negative (Negative)
[2025-09-22 09:41] LABS: C & S Indicated? No; RBC 0-2 HPF (0-2); WBC Negative HPF (0-5)
[2025-09-22 10:06] LABS: Troponin I 42 ng/L (<35)
--- NOTE | 2025-09-22 11:51 | IN_ITS ---
PT Notes Visit Reasons: Fall // [facility] Physical Therapy Evaluation Date: 09/22/25 Referring Doctor: Dr. Turcios PT Orders: PT CONSULT: Precautions: Fall, standard Patient Profile/Admitting Diagnosis: Petty is a 69 year old resident of [facility] presenting for PT evaluation in ER setting after a fall. Imaging of pelvis and spine have all been normal. PMH significant for Alzheimer's dementia. Her niece is present throughout session, providing entirety of subje ctive history. Social History/Home Situation: Has resided at [facility] for approx 2 months. Ambulates independently there without a device, and resides in a 2nd floor room. Per her niece, Petty has been cognitively declining over the past 10 days, and is now unable to manage independently. [facility] has declined her return. She does have a bed lined up in a memory care unit for tomorrow. Equipment Owned/DME: none Subjective: Niece reports that Petty has not been in any pain this morning, but that she has required assistance with all mobility and ADLs. Objective: General Observation: Resting in bed, no lines. Mental Status: Not oriented to place or time. Requires continuous redirecting during session, and single step commands for all mobility. Pain: denies ROM: Right Upper Extremity: WFL for shoulders, elbows, wrists. Left Upper Extremity: WFL for shoulders, elbows, wrists. Right Lower Extremity: WFL for hips and knees Left Lower Extremity: WFL for hips and knees Strength: Unable to follow commands for MMT, but demonstrates 3/5 strength for hip flexion, knee extension, knee flexion, and shoulder flexion. Bed Mobility/Transfers: supine-sit: min A and max cues. Increased time to perform due to cognitive impairment. sit-supine: max A x 2 due to inability to follow commands sit-stand: SBA, max cues stand-sit: SBA, max cues Gait: Ambulates 75' with FWW, CGA and max cues for safety. Utilizes walker mi nimally, frequently carrying it in front of her. Easily distracted by items that she passes, requiring assistance back to the room and continuous cues. Balance: Static Sitting: normal Dynamic Sitting: normal Static Standing: good Dynamic Standing: good Special Tests: Mobility Limitations Standardized Measure [facility] AM-PAC 6 clicks Basic Mobility Inpatient Short Form: Raw Score: 12 CMS Score: 69% impairment Informed Consent/Education: Patient instructed in purpose of PT consult and plan of care. Assessment: Patient is a 69 year old female referred to physical therapy evaluation in ER setting following a fall. Patient suffers from Alzheimer's dementia, which, according to her niece, has rapidly advanced. Although she demonstrates good strength, ROM and balance, she lacks safety awareness and is subsequently unable to ambulate, transfer or perform ADLs independently, and is at high risk for additional falls. AM-PAC scores do not support discharge to the community. She currently demonstrates the following impairment level findings: 1. unable to follow commands 2. not oriented to place or time 3. decreased safety awareness Impairments are contributing to the following functional limitations: 1. unable to ambulate independently 2. unable to transfer independently 3. high risk for future falls Patient is assessed as Moderate [id number] complexity based on the following: History: As above. Examination: As above. Presentation: evolving Decision Making: moderate Plan of Care/Treatment Plan: One time consult for mobility assessment and discharge planning. DISCHARGE RECOMMENDATIONS: Shredded Filler Cigar Maker Machine Care TREATMENT CODE/TIME: [id number] ([id number])
[2025-09-22 13:41] VITALS: BP 112/92; PULSE 58; RESP 20; TEMP 36.8; O2SAT 100
[2025-09-22 13:54] VITALS: BP 112/92; PULSE 58; RESP 20; TEMP 36.8; O2SAT 100
--- NOTE | 2025-09-22 17:06 | PDOC.CMPRO ---
Date of service: 09/22/25 Time of Service: 13:00 Care Management Progress Note Progress Note Text Progress Note Text: CM was consulted by the ED provider today to meet with Petty and her niece, Christa ([facility]), to discuss Petty's plan of care. Per report, Petty lives at the [facility], and had a fall today. She has alzheimer's dementia, and has had a decline in the past two weeks, per [facility] and [facility] staff. Christa reported that Petty has lived at [facility] for two months, but stated that due to her recent decline, Caty from plans to send referrals to [facility] care facilities tomorrow. Per Christa, Petty saved money for her care, so she will be paying facilities privately for ad terminal makeup operator care. PT was consulted, and Petty was physically able to ambulate, but did need cueing and redirection due to a lack of safety awareness. Per MD, Petty does not have a medical reason for admission at this time, and there are no available beds on [facility], therefore Petty would likely remain in the ED until discharge. CM reached out to Caty at , who expressed concern about Petty returning due to her increased confusion. Caty stated that she would need another caregiver present at to better support Petty until she is placed in ad terminal makeup operator care. CM discussed this with Christa, including the alternative option of Christa taking Petty to her home to care for her. Christa agreed to provide support at until placement is secured. Caty reported that she would discuss the option of hiring a caregiver for this time with Christa as well, to relieve Christa, if possible. Petty was discharged back to with support from her niece, Christa, with a plan to transition her to ad terminal makeup operator care as soon as a bed is secured by staff. CM will continue to follow. Social Determinants of Health Screening Will the Patient Participate in the Screening?: Declined to provide
== END 2025-09-22 15:32 | disposition home or self-care (01) ==
PROVIDERS: Student in an Organized Health Care Education/Training Program; Emergency Provider Emergency Medicine; PCP Nurse Practitioner Family
DX: M25.552 Pain in left hip (principal); G30.9 Alzheimer's disease, unspecified; F02.80 Dementia in other diseases classified elsewhere, unspecified severity, without behavioral disturbance, psychotic disturbance, mood disturbance, and anxiety; E87.6 Hypokalemia; W19.XXXA Unspecified fall, initial encounter
CPT/HCPCS: 99284; 99285; 36415; 96374; 00123; 74177; 80053; 82550; 82805; 93005; 96361; 97162; 70450; 71260; 72125; 81003; 81015; 84484; 85025; 93010; J0131; J3490